=== PATIENT | male | born 1965 | race Hispanic/Latino ===

== ENCOUNTER 2020-09-01 14:29 | Inpatient (IN) | payer OTHER ==
[~2020-09-01] VITALS: Ht 167.6 cm; Wt 77.2 kg
[2020-09-01 14:58] LABS: BASOPHILS % (AUTO) 3.2 % (0.0-5.0); EOSINOPHILS % (AUTO) 3.8 % (0.0-8.0); LYMPHOCYTES % (AUTO) 22.2 % (21.0-51.0); MEAN CORPUSCULAR HEMOGLOBIN 31.5 pg (27.0-33.0); MEAN CORPUSCULAR HGB CONC 34.9 g/dL (32.0-36.0); MEAN CORPUSCULAR VOLUME 90.5 fL (79-99); MONOCYTES % (AUTO) 11.9 % (3.0-13.0); NEUTROPHILS % (AUTO) 58.7 % (40.0-77.0); PLATELET COUNT (AUTO) 111 K/uL (130-400); RED BLOOD CELL COUNT(AUTO) 4.09 MIL/uL (4.50-6.20); RED CELL DISTRIBUTION WIDTH 15.4 % (11.0-15.5); WHITE BLOOD COUNT (AUTO) 5.3 K/uL (4.8-10.8)
[2020-09-01] MEDS ORDERED: CHLORPROMAZINE HCL 25 MG/ML 1ML AMP ONE (15:07)
[2020-09-01] MEDS ORDERED: SODIUM CHLORIDE 0.9% 1000ML 1,000 ML IV ONE (15:08)
[2020-09-01 15:09] LABS: POTASSIUM 3.2 mmol/L (3.5-5.1)
[2020-09-01] MEDS ORDERED: POTASSIUM CHLORIDE 10% ELIXIR 20 MEQ/15 ML UDCUP ONE (15:26)
[2020-09-01 15:32] LABS: ALBUMIN 3.1 g/dL (3.5-5.0); BILIRUBIN,TOTAL 3.5 mg/dL (0.2-1.0); TOTAL PROTEIN, SERUM 8.2 g/dL (6.0-8.3)
[2020-09-01 16:39] LABS: BILIRUBIN,URINE Negative (NEGATIVE); COLOR,URINE Yellow (YELLOW); GLUCOSE, URINE (UA) Negative (NEGATIVE); KETONES,URINE Negative (NEGATIVE); LEUKOCYTE ESTERASE ,URINE Negative (NEGATIVE); NITRATE,URINE Negative (NEGATIVE); OCCULT BLOOD,URINE Negative (NEGATIVE); PH,URINE 6.5 (5.0-8.0); PROTEIN,URINE Negative (NEGATIVE); UROBILINOGEN,URINE 0.2 mg/dL (0.2-1.0)
[2020-09-01 16:40] LABS: INR 1.29 (0.85-1.15); PROTHROMBIN TIME 13.7 SEC (9.6-11.6)
[2020-09-01 16:41] LABS: PARTIAL THROMBOPLASTIN TIME 32.8 SEC (26.3-35.5)
[2020-09-01 16:41] LABS: APPEARANCE,URINE SLIGHTLY CLOUDY (CLEAR)
[2020-09-01 16:45] LABS: BACTERIA,URINE Moderate /HPF (None Seen); RBC,URINE 0-1 /HPF (0-1); WBC,URINE 0-1 /HPF (0-1)
[2020-09-01 16:46] LABS: SQUAMOUS EPITHELIAL CELL,UR Rare /HPF (0-2)
[2020-09-01 16:47] LABS: AMPHET/METH SCREEN,URINE NEGATIVE (NEGATIVE); BARBITURATE SCREEN, URINE NEGATIVE (NEGATIVE); BENZODIAZEPINES SCREEN,URINE NEGATIVE (NEGATIVE); CANNABINOID SCREEN,URINE NEGATIVE (NEGATIVE); COCAINE SCREEN,URINE NEGATIVE (NEGATIVE); OPIATE SCREEN,URINE NEGATIVE (NEGATIVE); PHENCYCLIDINE SCREEN,URINE NEGATIVE (NEGATIVE)
[2020-09-01] MEDS ORDERED: LORAZEPAM 2 MG/ML 1 ML VIAL ONE ×2 (18:27→21:13)
[2020-09-01] MEDS ORDERED: PHARMACY COMMUNICATION MISC PRN (20:15)
[2020-09-01] MEDS ORDERED: CHLORDIAZEPOXIDE HCL 25 MG CAP PO PRN ×2 (20:15)
[2020-09-01] MEDS ORDERED: LORAZEPAM 2 MG/ML 1 ML VIAL IVP PRN ×2 (20:15)
[2020-09-01] MEDS: LACTATED RINGERS 1000ML 1,000 ML IV SCH ×2 (20:15→22:15)
[2020-09-01] MEDS: CEFTRIAXONE SODIUM 1 GM IVP SCH (20:30)
[2020-09-01] MEDS ORDERED: MAG HYDROX/AL HYDROX/SIMETH ES 30 ML SUSP UDCUP PO PRN (20:45)
[2020-09-01] MEDS ORDERED: GUAIFENESIN-DM 200/20 MG 10 ML PO PRN (20:45)
[2020-09-01] MEDS ORDERED: DiphenhydrAMINE HCL 50 MG/ML VIAL IV PRN (20:45)
[2020-09-01] MEDS ORDERED: NITROGLYCERIN 0.4 MG SL TAB SL PRN (20:45)
[2020-09-01] MEDS ORDERED: LACTULOSE 20 GM/30 ML UDCUP PO PRN (20:45)
[2020-09-01] MEDS ORDERED: ONDANSETRON HCL 4 MG/2 ML VIAL IV PRN (20:45)
[2020-09-01] MEDS ORDERED: DIPHENHYDRAMINE HCL 25 MG CAPSULE PO PRN (20:45)
[2020-09-01] MEDS ORDERED: ACETAMINOPHEN 325 MG TAB PO PRN ×2 (20:45)
[2020-09-01] MEDS ORDERED: CEFTRIAXONE SODIUM 1 GM ONE (21:13)
[2020-09-01] MEDS ORDERED: LACTATED RINGERS 1000ML 3,000 ML IV ONE (21:13)
[2020-09-01 21:50] LABS: HEMATOCRIT 32.6 % (42-54)
[2020-09-01 22:05] LABS: CARBON DIOXIDE 23 mmol/L (21-32); CHLORIDE 101 mmol/L (101-111); GLOMERULAR FILTR. RATE CALC 82 mL/min (>60); GLUCOSE,RANDOM 118 mg/dL (70-105); POTASSIUM 3.9 mmol/L (3.5-5.1); SODIUM SERUM 136 mmol/L (136-145); UREA NITROGEN, BLOOD 5 mg/dL (7-18)
[2020-09-01 22:09] LABS: ALANINE AMINOTRANSFERASE 42 U/L (12-78); ALBUMIN 2.7 g/dL (3.5-5.0); ASPARTATE AMINOTRANSFERASE 165 U/L (10-37); BILIRUBIN,TOTAL 3.4 mg/dL (0.2-1.0); TOTAL PROTEIN, SERUM 7.3 g/dL (6.0-8.3)
[2020-09-01 22:10] LABS: ACETAMINOPHEN < 1 mcg/mL (10-29); CRP QUANTITATIVE 12.7 mg/L (0.00-9.0); SALICYLATE < 2.8 mg/dL (2.8-20.0)
[2020-09-01 23:47] LABS: HEMATOCRIT 32.6 % (42-54)
[2020-09-02] MEDS: LACTATED RINGERS 1000ML 1,000 ML IV SCH (00:15)
[2020-09-02 03:25] LABS: HEMATOCRIT 30.9 % (42-54)
[2020-09-02] MEDS ORDERED: METOPROLOL TARTRATE 25 MG TAB ONE (04:42)
[2020-09-02] MEDS ORDERED: THIAMINE HCL 100 MG/ML 2ML VIAL ONE (07:31)
[2020-09-02] MEDS ORDERED: FOLIC ACID 1 MG TABLET ONE (07:31)
[2020-09-02] MEDS ORDERED: MULTIVITAMIN TABLET ONE (07:31)
[2020-09-02 08:03] LABS: HEMATOCRIT 32.9 % (42-54)
[2020-09-02] MEDS: METOPROLOL TARTRATE 25 MG TAB PO SCH ×2 (09:00→21:43)
[2020-09-02] MEDS: FOLIC ACID 1 MG TABLET PO SCH (09:00)
[2020-09-02] MEDS: THIAMINE HCL 100 MG/ML 2ML VIAL IV SCH (09:00)
[2020-09-02] MEDS: MULTIVITAMIN TABLET PO SCH (09:00)
[2020-09-02 11:56] LABS: HEMATOCRIT 33.4 % (42-54)
[2020-09-02 13:01] VITALS: BP 137/83
[2020-09-02] MEDS ORDERED: LORAZEPAM 2 MG/ML 1 ML VIAL ONE (13:12)
[2020-09-02 20:02] VITALS: BP 131/78
[2020-09-02] MEDS ORDERED: CLON2TAB11 PO (21:33)
[2020-09-02] MEDS ORDERED: METO25TA6 PO (21:33)
[2020-09-02] MEDS ORDERED: LISI20TA24 PO (21:33)
[2020-09-02] MEDS: CEFTRIAXONE SODIUM 1 GM IVP SCH (21:43)
[2020-09-03] VITALS (7 sets, daily range): BP systolic 114–132; BP diastolic 74–86
[2020-09-03] MEDS ORDERED: CLONAZEPAM 1 MG TABLET PO ONE ×2 (00:30→23:00)
[2020-09-03 05:15] LABS: BASOPHILS % (AUTO) 1.6 % (0.0-5.0); EOSINOPHILS % (AUTO) 7.8 % (0.0-8.0); LYMPHOCYTES % (AUTO) 15.4 % (21.0-51.0); MEAN CORPUSCULAR HGB CONC 34.5 g/dL (32.0-36.0); MEAN CORPUSCULAR VOLUME 92.7 fL (79-99); MONOCYTES % (AUTO) 12.6 % (3.0-13.0); NEUTROPHILS % (AUTO) 62.1 % (40.0-77.0); PLATELET COUNT (AUTO) 77 K/uL (130-400); RED BLOOD CELL COUNT(AUTO) 3.56 MIL/uL (4.50-6.20); RED CELL DISTRIBUTION WIDTH 14.8 % (11.0-15.5); WHITE BLOOD COUNT (AUTO) 5.6 K/uL (4.8-10.8)
[2020-09-03 06:02] LABS: CREATININE 1.1 mg/dL (0.5-1.5); POTASSIUM 3.8 mmol/L (3.5-5.1)
[2020-09-03 07:14] LABS: HEPATITIS A ANTIBODY IGM Negative (Negative); HEPATITIS B CORE IGM Negative (Negative); HEPATITIS Bs ANTIGEN SCREEN P Negative (Negative)
[2020-09-03] MEDS: LISINOPRIL 20 MG TABLET PO SCH (09:00)
[2020-09-03] MEDS: FOLIC ACID 1 MG TABLET PO SCH (09:00)
[2020-09-03] MEDS: MULTIVITAMIN TABLET PO SCH (09:00)
[2020-09-03] MEDS: THIAMINE HCL 100 MG/ML 2ML VIAL IV SCH (09:00)
[2020-09-03] MEDS: METOPROLOL TARTRATE 25 MG TAB PO SCH (09:02)
[2020-09-03] MEDS: CEFTRIAXONE SODIUM 1 GM IVP SCH (20:48)
[2020-09-03] MEDS ORDERED: CLONAZEPAM 1 MG TABLET ONE (22:50)
[2020-09-04 03:07] VITALS: BP 128/74
[2020-09-04 05:50] LABS: BASOPHILS % (AUTO) 1.5 % (0.0-5.0); EOSINOPHILS % (AUTO) 4.1 % (0.0-8.0); HEMATOCRIT 34.1 % (42-54); LYMPHOCYTES % (AUTO) 13.8 % (21.0-51.0); MEAN CORPUSCULAR HEMOGLOBIN 32.3 pg (27.0-33.0); MEAN CORPUSCULAR HGB CONC 35.2 g/dL (32.0-36.0); MEAN CORPUSCULAR VOLUME 91.7 fL (79-99); MONOCYTES % (AUTO) 10.3 % (3.0-13.0); NEUTROPHILS % (AUTO) 69.6 % (40.0-77.0); PLATELET COUNT (AUTO) 81 K/uL (130-400); RED BLOOD CELL COUNT(AUTO) 3.72 MIL/uL (4.50-6.20); RED CELL DISTRIBUTION WIDTH 14.9 % (11.0-15.5); WHITE BLOOD COUNT (AUTO) 9.2 K/uL (4.8-10.8)
[2020-09-04 06:02] LABS: ALBUMIN 2.8 g/dL (3.5-5.0); BILIRUBIN,DIRECT 2.2 mg/dL (0.0-0.3); BILIRUBIN,TOTAL 4.1 mg/dL (0.2-1.0); CREATININE 1.1 mg/dL (0.5-1.5); POTASSIUM 3.5 mmol/L (3.5-5.1); TOTAL PROTEIN, SERUM 7.4 g/dL (6.0-8.3)
[2020-09-04 08:00] VITALS: BP 151/88
[2020-09-04] MEDS: METOPROLOL TARTRATE 25 MG TAB PO SCH (08:12)
[2020-09-04] MEDS: MULTIVITAMIN TABLET PO SCH (08:12)
[2020-09-04] MEDS: FOLIC ACID 1 MG TABLET PO SCH (08:12)
[2020-09-04] MEDS: LISINOPRIL 20 MG TABLET PO SCH (08:12)
[2020-09-04] MEDS: THIAMINE HCL 100 MG/ML 2ML VIAL IV SCH (08:13)
[2020-09-04] MEDS ORDERED: SULF1TAB42 PO (10:34)
[2020-09-04 11:00] VITALS: BP 129/74
== END 2020-09-04 13:45 | disposition home or self-care (01) | DRG 433 ==
LOC: EDH 14:29 → EDHIP 14:30 → 3BH 09-02 20:40
PROVIDERS: ADMIT Family Medicine; ATTEND Family Medicine
DX: K70.30 Alcoholic cirrhosis of liver without ascites (principal); M62.82 Rhabdomyolysis; F10.10 Alcohol abuse, uncomplicated; E86.0 Dehydration; I10 Essential (primary) hypertension
CPT/HCPCS: 36415; 74177; 76705; 80048; 80053; 80074; 80076; 80305; 81001; 82270; 82550; 83605; 83735; 84145; 84443; 84484; 85014; 85018; 85025; 85610; 85730; 86140; 86701; 87077; 87088; 87186; 87390; 93005; G0378; G0481; J0696; J2060; J3230; J3411; J7030; J7120

== ENCOUNTER 2022-01-28 23:44 | Inpatient (IN) | payer OTHER ==
[~2022-01-28] VITALS: Ht 167.6 cm; Wt 65.8 kg
[~2022-01-28 23:44] MED LIST: CLON2TAB11 PO; LISI20TA24 PO; METO25TA6 PO; SULF1TAB42 PO
[2022-01-29 00:40] LABS: BASOPHILS % (AUTO) 1.1 % (0.0-5.0); EOSINOPHILS % (AUTO) 8.3 % (0.0-8.0); HEMATOCRIT 27.3 % (42-54); LYMPHOCYTES % (AUTO) 7.7 % (21.0-51.0); MEAN CORPUSCULAR HEMOGLOBIN 37.3 pg (27.0-33.0); MEAN CORPUSCULAR HGB CONC 36.6 g/dL (32.0-36.0); MEAN CORPUSCULAR VOLUME 101.9 fL (79-99); MONOCYTES % (AUTO) 13.5 % (3.0-13.0); NEUTROPHILS % (AUTO) 68.2 % (40.0-77.0); PLATELET COUNT (AUTO) 194 K/uL (130-400); RED BLOOD CELL COUNT(AUTO) 2.68 MIL/uL (4.50-6.20); RED CELL DISTRIBUTION WIDTH 13.2 % (11.0-15.5); WHITE BLOOD COUNT (AUTO) 13.5 K/uL (4.8-10.8)
[2022-01-29 00:46] LABS: CARBON DIOXIDE 20 mmol/L (21-32); CHLORIDE 93 mmol/L (101-111); CREATININE 2.2 mg/dL (0.5-1.5); GLOMERULAR FILTR. RATE CALC 33 mL/min (>60); GLUCOSE,RANDOM 115 mg/dL (70-105); POTASSIUM 4.1 mmol/L (3.5-5.1); SODIUM SERUM 125 mmol/L (136-145); UREA NITROGEN, BLOOD 37 mg/dL (7-18)
[2022-01-29 00:49] LABS: INR 1.48 (0.85-1.15); PARTIAL THROMBOPLASTIN TIME 30.3 SEC (26.3-35.5)
[2022-01-29 00:50] LABS: ALANINE AMINOTRANSFERASE 37 U/L (12-78); ALBUMIN 1.6 g/dL (3.5-5.0); AMMONIA 28 umol/L (11-32); ASPARTATE AMINOTRANSFERASE 90 U/L (10-37); TOTAL PROTEIN, SERUM 7.1 g/dL (6.0-8.3)
[2022-01-29] MEDS ORDERED: ONDANSETRON 4MG INJ IV PRN (02:00)
[2022-01-29] MEDS ORDERED: ACETAMINOPHEN 325 MG TAB PO PRN ×2 (02:00)
[2022-01-29] MEDS ORDERED: MORPHINE 2 MG SYG IV PRN (02:00)
[2022-01-29 02:18] LABS: HEMOGLOBIN A1C 4.1 % (4.0-6.0)
[2022-01-29] MEDS ORDERED: ZOSYN 3.375GM+NS 50ML 50 ML ONE (02:19)
[2022-01-29] MEDS: ZOSYN 3.375GM+NS 50ML 50 ML IV SCH ×3 (02:35→21:17)
[2022-01-29] MEDS ORDERED: FUROSEMIDE 20 MG TABLET PO SCH (03:30)
[2022-01-29 04:00] VITALS: BP 132/79
[2022-01-29] MEDS ORDERED: [UNRECOGNIZED DRUG - CODE] PO (04:39)
[2022-01-29] MEDS ORDERED: DAFLON PO (04:39)
[2022-01-29] MEDS ORDERED: CLIN-141 PO (04:39)
[2022-01-29] MEDS ORDERED: [UNRECOGNIZED DRUG - OTHER] PO (04:39)
[2022-01-29 07:05] VITALS: BP 117/69
[2022-01-29] MEDS ORDERED: ENOXAPARIN SODIUM 40 MG/0.4 ML SYRINGE SQ SCH (09:00)
[2022-01-29] MEDS ORDERED: FAMOTIDINE 20MG VIAL IV SCH (09:00)
[2022-01-29] MEDS ORDERED: SPIRONOLACTONE 25 MG TAB PO SCH (09:00)
[2022-01-29 09:57] LABS: CARBON DIOXIDE 21 mmol/L (21-32); CHLORIDE 96 mmol/L (101-111); CREATININE 2.1 mg/dL (0.5-1.5); GLOMERULAR FILTR. RATE CALC 35 mL/min (>60); GLUCOSE,RANDOM 94 mg/dL (70-105); SODIUM SERUM 129 mmol/L (136-145); UREA NITROGEN, BLOOD 34 mg/dL (7-18)
[2022-01-29 10:02] LABS: ALANINE AMINOTRANSFERASE 39 U/L (12-78); ALBUMIN 1.6 g/dL (3.5-5.0); ASPARTATE AMINOTRANSFERASE 87 U/L (10-37); CREATINE KINASE, TOTAL 260 U/L (21-232)
[2022-01-29] MEDS: THIAMINE HCL 100 MG TABLET PO SCH (10:30)
[2022-01-29] MEDS: PANTOPRAZOLE 40 MG/VIAL IVP SCH ×2 (10:30→21:17)
[2022-01-29 11:05] VITALS: BP 118/71
[2022-01-29] MEDS: 0.9%NACL 1000ML 1,000 ML IV SCH (12:07)
[2022-01-29] MEDS: LINEZOLID 600 MG/ISO-OSM 300 ML IV SCH ×2 (12:08→21:17)
[2022-01-29] MEDS ORDERED: LIDOCAINE HCL MPF 1% 5ML VIAL ONE (14:47)
[2022-01-29 15:05] VITALS: BP 109/73
[2022-01-29] MEDS: HYDROMORPHONE 0.5 MG SYG (0.5MG/0.5ML) IVP PRN ×2 (16:14→22:14)
[2022-01-29 19:00] VITALS: BP 120/80
[2022-01-29 19:37] LABS: APPEARANCE,URINE Clear (CLEAR); BILIRUBIN,URINE Negative (NEGATIVE); COLOR,URINE Dark Yellow (YELLOW); GLUCOSE, URINE (UA) Negative (NEGATIVE); KETONES,URINE Negative (NEGATIVE); LEUKOCYTE ESTERASE ,URINE Trace (NEGATIVE); NITRATE,URINE Negative (NEGATIVE); OCCULT BLOOD,URINE Large (NEGATIVE); PROTEIN,URINE POS 2+ mg/dL (NEGATIVE)
[2022-01-29 19:40] LABS: CREATININE,URINE RANDOM 54 mg/dL (30-135); SODIUM,URINE RANDOM 58 mmol/l (40-220)
[2022-01-29 20:01] LABS: BACTERIA,URINE Few /HPF (None Seen)
[2022-01-29 20:02] LABS: RBC,URINE 26-50 /HPF (0-1); SQUAMOUS EPITHELIAL CELL,UR Rare /HPF (0-2); YEAST,URINE BUDDING Few /HPF (None Seen)
[2022-01-29 23:55] VITALS: BP 108/65
[2022-01-30 04:00] VITALS: BP 117/76
[2022-01-30] MEDS: ZOSYN 3.375GM+NS 50ML 50 ML IV SCH ×2 (04:20→12:23)
[2022-01-30] MEDS: 0.9%NACL 1000ML 1,000 ML IV SCH ×2 (04:21→09:09)
[2022-01-30 05:48] LABS: BASOPHILS % (AUTO) 1.7 % (0.0-5.0); EOSINOPHILS % (AUTO) 22.5 % (0.0-8.0); HEMATOCRIT 29.5 % (42-54); MEAN CORPUSCULAR HEMOGLOBIN 36.3 pg (27.0-33.0); MEAN CORPUSCULAR HGB CONC 34.2 g/dL (32.0-36.0); MEAN CORPUSCULAR VOLUME 106.1 fL (79-99); MONOCYTES % (AUTO) 9.4 % (3.0-13.0); NEUTROPHILS % (AUTO) 54.3 % (40.0-77.0); PLATELET COUNT (AUTO) 167 K/uL (130-400); RED BLOOD CELL COUNT(AUTO) 2.78 MIL/uL (4.50-6.20); RED CELL DISTRIBUTION WIDTH 13.3 % (11.0-15.5); WHITE BLOOD COUNT (AUTO) 10.4 K/uL (4.8-10.8)
[2022-01-30 06:07] LABS: ALANINE AMINOTRANSFERASE 35 U/L (12-78); ALBUMIN 1.5 g/dL (3.5-5.0); AMMONIA 32 umol/L (11-32); ASPARTATE AMINOTRANSFERASE 86 U/L (10-37); CARBON DIOXIDE 25 mmol/L (21-32); CHLORIDE 100 mmol/L (101-111); CREATININE 1.9 mg/dL (0.5-1.5); GLOMERULAR FILTR. RATE CALC 39 mL/min (>60); GLUCOSE,RANDOM 87 mg/dL (70-105); PHOSPHORUS 4.4 mg/dL (2.5-4.9); POTASSIUM 4.3 mmol/L (3.5-5.1); SODIUM SERUM 133 mmol/L (136-145); TOTAL PROTEIN, SERUM 6.8 g/dL (6.0-8.3); UREA NITROGEN, BLOOD 34 mg/dL (7-18)
[2022-01-30 06:10] LABS: % IRON SATURATION 65.2 % (30-44)
[2022-01-30 06:53] LABS: ERYTHROCYTE SEDIMENTATION RATE 105 MM/HR (0-20)
[2022-01-30 07:30] VITALS: BP 119/70
[2022-01-30] MEDS: PANTOPRAZOLE 40 MG/VIAL IVP SCH ×2 (09:10→20:16)
[2022-01-30] MEDS: THIAMINE HCL 100 MG TABLET PO SCH (09:10)
[2022-01-30] MEDS: LINEZOLID 600 MG/ISO-OSM 300 ML IV SCH ×2 (10:27→22:53)
[2022-01-30] MEDS: LACTULOSE 20 GM/30 ML UDCUP PO SCH ×3 (10:27→20:30)
[2022-01-30 11:00] VITALS: BP 114/73
[2022-01-30 17:00] VITALS: BP 116/76
[2022-01-30 19:27] VITALS: BP 123/76
[2022-01-30 23:29] VITALS: BP 121/66
[2022-01-31 04:03] VITALS: BP 113/73
[2022-01-31 05:08] LABS: BASOPHILS % (AUTO) 1.3 % (0.0-5.0); HEMATOCRIT 26.3 % (42-54); LYMPHOCYTES % (AUTO) 12.7 % (21.0-51.0); MEAN CORPUSCULAR HEMOGLOBIN 36.6 pg (27.0-33.0); MEAN CORPUSCULAR HGB CONC 35.4 g/dL (32.0-36.0); MEAN CORPUSCULAR VOLUME 103.5 fL (79-99); MONOCYTES % (AUTO) 10.4 % (3.0-13.0); NEUTROPHILS % (AUTO) 55.3 % (40.0-77.0); PLATELET COUNT (AUTO) 142 K/uL (130-400); RED BLOOD CELL COUNT(AUTO) 2.54 MIL/uL (4.50-6.20); RED CELL DISTRIBUTION WIDTH 13.2 % (11.0-15.5); WHITE BLOOD COUNT (AUTO) 8.3 K/uL (4.8-10.8)
[2022-01-31 05:36] LABS: ALBUMIN 1.3 g/dL (3.5-5.0); CREATININE 1.8 mg/dL (0.5-1.5); POTASSIUM 3.8 mmol/L (3.5-5.1); TOTAL PROTEIN, SERUM 6.1 g/dL (6.0-8.3)
[2022-01-31] MEDS: HYDROMORPHONE 0.5 MG SYG (0.5MG/0.5ML) IVP PRN (06:09)
[2022-01-31 08:00] VITALS: BP 115/74
[2022-01-31] MEDS: PANTOPRAZOLE 40 MG/VIAL IVP SCH (09:33)
[2022-01-31] MEDS: LACTULOSE 20 GM/30 ML UDCUP PO SCH (09:33)
[2022-01-31] MEDS: THIAMINE HCL 100 MG TABLET PO SCH (09:33)
[2022-01-31] MEDS ORDERED: CEFUROXIME AXETIL 250 MG TABLET PO SCH (10:30)
[2022-01-31 11:50] VITALS: BP 120/82
[2022-01-31] MEDS ORDERED: CEFU500T67 PO (13:27)
== END 2022-01-31 15:50 | disposition home or self-care (01) | DRG 871 ==
LOC: EDH 23:44 → EDHIP 23:45 → 3BH 01-29 03:50
PROVIDERS: ADMIT Hospitalist; ATTEND Hospitalist
PROC: 0H9LXZZ Drainage of Left Lower Leg Skin, External Approach (ICD-10-PCS; principal; 2022-01-29)
DX: A41.9 Sepsis, unspecified organism (principal); E43 Unspecified severe protein-calorie malnutrition; L03.116 Cellulitis of left lower limb; N17.9 Acute kidney failure, unspecified; E87.1 Hypo-osmolality and hyponatremia; R18.8 Other ascites; R65.20 Severe sepsis without septic shock; I10 Essential (primary) hypertension; D53.9 Nutritional anemia, unspecified; E88.09 Other disorders of plasma-protein metabolism, not elsewhere classified; Z20.822 Contact with and (suspected) exposure to COVID-19; Z68.23 Body mass index [BMI] 23.0-23.9, adult; Z80.3 Family history of malignant neoplasm of breast; Z83.3 Family history of diabetes mellitus; Z82.5 Family history of asthma and other chronic lower respiratory diseases; K74.60 Unspecified cirrhosis of liver; E78.5 Hyperlipidemia, unspecified
CPT/HCPCS: 36415; 73700; 76705; 76770; 76882; 80053; 81001; 82140; 82550; 82570; 82948; 83036; 83540; 83550; 83605; 84100; 84145; 84300; 84540; 85025; 85610; 85651; 85730; 86140; 87040; 87070; 87076; 87077; 87088; 87186; 87635; 87804; 93925; 93970; C9113; G0378; J1170; J2020; J2543; J3490

== ENCOUNTER 2022-02-13 03:24 | Emergency (ER) | payer OTHER ==
[~2022-02-13] VITALS: Ht 167.6 cm; Wt 68.0 kg
[~2022-02-13 03:24] MED LIST changes: +CEFU500T67 PO; -CLON2TAB11 PO; +DAFLON PO; -LISI20TA24 PO; -METO25TA6 PO; -SULF1TAB42 PO; +[UNRECOGNIZED DRUG - CODE] PO
[2022-02-13 04:00] LABS: BASOPHILS % (AUTO) 1.6 % (0.0-5.0); EOSINOPHILS % (AUTO) 12.2 % (0.0-8.0); HEMATOCRIT 29.1 % (42-54); LYMPHOCYTES % (AUTO) 17.1 % (21.0-51.0); MEAN CORPUSCULAR HEMOGLOBIN 36.8 pg (27.0-33.0); MEAN CORPUSCULAR HGB CONC 35.4 g/dL (32.0-36.0); MEAN CORPUSCULAR VOLUME 103.9 fL (79-99); MONOCYTES % (AUTO) 13.8 % (3.0-13.0); PLATELET COUNT (AUTO) 162 K/uL (130-400); RED CELL DISTRIBUTION WIDTH 14.8 % (11.0-15.5); WHITE BLOOD COUNT (AUTO) 8.6 K/uL (4.8-10.8)
[2022-02-13 04:07] LABS: POTASSIUM 4.8 mmol/L (3.5-5.1)
[2022-02-13 04:11] LABS: ALBUMIN 1.9 g/dL (3.5-5.0); TOTAL PROTEIN, SERUM 7.8 g/dL (6.0-8.3)
[2022-02-13] MEDS: ALBUMIN (HUMAN) 25% 100 ML IV PRN (04:20)
[2022-02-13] MEDS: FENTANYL CITRATE PF 50 MCG/1 ML 2ML VIAL IVP ONE (04:26)
[2022-02-13] MEDS: BACITRACIN 1 EACH PACKET TP ONE (12:59)
[2022-02-13 13:40] VITALS: BP 120/84
== END 2022-02-13 13:41 | disposition home or self-care (01) ==
LOC: EDH 03:24
DX: R18.8 Other ascites (principal); I10 Essential (primary) hypertension
CPT/HCPCS: 49082; 99285; 96365; 96375; 80053; 82140; 83690; 85025; 36415; P9046; J3010

== ENCOUNTER 2022-02-26 07:46 | Observation (INO) | payer OTHER ==
[~2022-02-26] VITALS: Ht 167.6 cm; Wt 68.7 kg
[2022-02-26 08:42] LABS: BASOPHILS % (AUTO) 1.9 % (0.0-5.0); EOSINOPHILS % (AUTO) 7.1 % (0.0-8.0); HEMATOCRIT 28.3 % (42-54); LYMPHOCYTES % (AUTO) 10.4 % (21.0-51.0); MEAN CORPUSCULAR HEMOGLOBIN 35.9 pg (27.0-33.0); MEAN CORPUSCULAR HGB CONC 34.6 g/dL (32.0-36.0); MEAN CORPUSCULAR VOLUME 103.7 fL (79-99); MONOCYTES % (AUTO) 12.2 % (3.0-13.0); NEUTROPHILS % (AUTO) 68.1 % (40.0-77.0); PLATELET COUNT (AUTO) 163 K/uL (130-400); RED BLOOD CELL COUNT(AUTO) 2.73 MIL/uL (4.50-6.20); RED CELL DISTRIBUTION WIDTH 14.6 % (11.0-15.5); WHITE BLOOD COUNT (AUTO) 6.9 K/uL (4.8-10.8)
[2022-02-26 08:54] LABS: INR 1.32 (0.85-1.15); PROTHROMBIN TIME 14.2 SEC (9.6-11.6)
[2022-02-26 08:55] LABS: CARBON DIOXIDE 20 mmol/L (21-32); CHLORIDE 102 mmol/L (101-111); CREATININE 1.9 mg/dL (0.5-1.5); GLOMERULAR FILTR. RATE CALC 39 mL/min (>60); GLUCOSE,RANDOM 111 mg/dL (70-105); PARTIAL THROMBOPLASTIN TIME 31.7 SEC (26.3-35.5); POTASSIUM 3.7 mmol/L (3.5-5.1); SODIUM SERUM 132 mmol/L (136-145); UREA NITROGEN, BLOOD 34 mg/dL (7-18)
[2022-02-26 08:59] LABS: ALANINE AMINOTRANSFERASE 43 U/L (12-78); ALCOHOL, BLOOD < 3 mg/dL (0-10); AMMONIA 45 umol/L (11-32); ASPARTATE AMINOTRANSFERASE 76 U/L (10-37); CREATINE KINASE, TOTAL 123 U/L (21-232); TOTAL PROTEIN, SERUM 7.6 g/dL (6.0-8.3)
[2022-02-26] MEDS ORDERED: HYDROCODONE/ACETAMINOPHEN 5/325 MG TAB PO ONE (09:30)
[2022-02-26 10:57] LABS: BILIRUBIN,URINE MODERATE (NEGATIVE); GLUCOSE, URINE (UA) NEGATIVE (NEGATIVE); KETONES,URINE NEGATIVE (NEGATIVE); LEUKOCYTE ESTERASE ,URINE NEGATIVE (NEGATIVE); NITRATE,URINE NEGATIVE (NEGATIVE); OCCULT BLOOD,URINE LARGE (NEGATIVE); PROTEIN,URINE 100 mg/dL (NEGATIVE); UROBILINOGEN,URINE 0.2 mg/dL (0.2-1.0)
[2022-02-26 11:03] LABS: APPEARANCE,URINE CLOUDY (CLEAR)
[2022-02-26 11:04] LABS: COLOR,URINE BROWN (YELLOW)
[2022-02-26 11:20] LABS: BACTERIA,URINE Few /HPF (None Seen); RBC,URINE 26-50 /HPF (0-1); SQUAMOUS EPITHELIAL CELL,UR Rare /HPF (0-2)
[2022-02-26 11:21] LABS: AMPHET/METH SCREEN,URINE NEGATIVE (NEGATIVE); BENZODIAZEPINES SCREEN,URINE NEGATIVE (NEGATIVE); CANNABINOID SCREEN,URINE NEGATIVE (NEGATIVE); COCAINE SCREEN,URINE NEGATIVE (NEGATIVE); PHENCYCLIDINE SCREEN,URINE NEGATIVE (NEGATIVE)
[2022-02-26] MEDS ORDERED: DiphenhydrAMINE HCL 50 MG/ML VIAL IV PRN (12:00)
[2022-02-26] MEDS ORDERED: MAG/ALUM/SIMETH 30 ML UDCUP PO PRN (12:00)
[2022-02-26] MEDS ORDERED: LACTULOSE 20 GM/30 ML UDCUP PO PRN (12:00)
[2022-02-26] MEDS ORDERED: ONDANSETRON 4MG INJ IV PRN (12:00)
[2022-02-26] MEDS ORDERED: FUROSEMIDE 20MG VIAL IV SCH (12:30)
[2022-02-26] MEDS: CEFTRIAXONE 1G VIAL IV SCH (12:34)
[2022-02-26] MEDS: SPIRONOLACTONE 25 MG TAB PO SCH ×2 (12:34→19:59)
[2022-02-26 13:52] VITALS: BP 122/80
[2022-02-26 16:00] VITALS: BP 115/76
[2022-02-26 20:00] VITALS: BP 132/86
[2022-02-26] MEDS ORDERED: MORPHINE 2 MG SYG IM ONE (23:30)
[2022-02-27] VITALS: BP 122/79
[2022-02-27 04:00] VITALS: BP 111/81
[2022-02-27 08:00] VITALS: BP 119/79
[2022-02-27 08:51] LABS: HEMATOCRIT 27.8 % (42-54); MEAN CORPUSCULAR HGB CONC 34.2 g/dL (32.0-36.0); MEAN CORPUSCULAR VOLUME 105.3 fL (79-99); PLATELET COUNT (AUTO) 146 K/uL (130-400); RED BLOOD CELL COUNT(AUTO) 2.64 MIL/uL (4.50-6.20); RED CELL DISTRIBUTION WIDTH 14.6 % (11.0-15.5); WHITE BLOOD COUNT (AUTO) 7.7 K/uL (4.8-10.8)
[2022-02-27 08:59] LABS: MAGNESIUM 1.9 mg/dL (1.80-2.40)
[2022-02-27] MEDS ORDERED: THIAMINE HCL 100 MG TABLET PO SCH (09:00)
[2022-02-27] MEDS ORDERED: CYANOCOBALAMIN (VITAMIN B-12) 1,000 MCG TABLET PO SCH (09:00)
[2022-02-27] MEDS ORDERED: FOLIC ACID 1 MG TABLET PO SCH (09:00)
[2022-02-27] MEDS ORDERED: SPIRONOLACTONE 25 MG TAB PO SCH (09:00)
[2022-02-27] MEDS ORDERED: FAMOTIDINE 20MG VIAL IV SCH (09:00)
[2022-02-27] MEDS ORDERED: FUROSEMIDE 20MG VIAL IV SCH (09:00)
[2022-02-27] MEDS ORDERED: ALBUMIN (HUMAN) 25% 200 ML IV SCH (11:00)
[2022-02-27] MEDS: SPIRONOLACTONE 25 MG TAB PO SCH (11:32)
[2022-02-27] MEDS: CEFTRIAXONE 1G VIAL IV SCH (11:51)
[2022-02-27 12:00] VITALS: BP 142/76
[2022-02-27] MEDS ORDERED: THIA100T78 PO (12:31)
[2022-02-27] MEDS ORDERED: LACT10SO9 PO (12:31)
[2022-02-27] MEDS ORDERED: SPIR50TA5 PO (12:31)
[2022-02-27] MEDS ORDERED: RIFA550T PO (12:31)
[2022-02-27 13:12] LABS: APPEARANCE BODY FLUID CLEAR (CLEAR); COLOR,BODY FLUID YELLOW (LT YELLOW); SPECIMENTYPE,BODY FLUID ASCITES; TOTAL VOLUME,BODY FLUID 8000 mL
[2022-02-27 13:13] LABS: BODY FLUID RBC 24 /cu. mm.; BODY FLUID WBC 116 /cu. mm.
[2022-02-27 13:44] LABS: BF LYMPHOCYTE 26 %; BF MESOTHELIAL 65 %; BF MONOCYTE 3 %
[2022-02-27 16:00] VITALS: BP 120/72
[2022-03-01 10:14] LABS: OPIATES SCREEN URINE Negative ng/mL (Cutoff=300)
== END 2022-02-27 17:15 | disposition home or self-care (01) ==
LOC: EDH 07:46 → OBSVTOIN 07:47 → EDHIP 07:47 → INTOOBSV 07:47 → 3DH 12:57
PROVIDERS: ADMIT Hospitalist; ATTEND Hospitalist
DX: K70.31 Alcoholic cirrhosis of liver with ascites (principal); E11.22 Type 2 diabetes mellitus with diabetic chronic kidney disease; N18.9 Chronic kidney disease, unspecified; D53.9 Nutritional anemia, unspecified; D63.1 Anemia in chronic kidney disease; E87.1 Hypo-osmolality and hyponatremia; I87.2 Venous insufficiency (chronic) (peripheral); Z87.891 Personal history of nicotine dependence; Z91.19 Patient's noncompliance with other medical treatment and regimen; Z79.899 Other long term (current) drug therapy
CPT/HCPCS: 96372; 96375 ×2; 99285; 82550; 83735 ×2; 84484; 80053; 80305; 82140; 85025; 85610; 85730; 81001; 36415 ×2; 71045; 73590; 93971; 49083; 93005; 96376; 96365; 96366; 80048; 85027; 89051; 87071; 87205; G0378 ×29; J0696 ×2; J1940; C1729; J3490; P9046

== ENCOUNTER 2022-03-11 17:56 | Inpatient (IN) | payer OTHER ==
[~2022-03-11] VITALS: Ht 167.6 cm; Wt 71.0 kg
[~2022-03-11 17:56] MED LIST changes: -CEFU500T67 PO; +LACT10SO9 PO; +RIFA550T PO; +SPIR50TA5 PO; +THIA100T78 PO
[2022-03-11 18:22] LABS: BASOPHILS % (AUTO) 1.3 % (0.0-5.0); EOSINOPHILS % (AUTO) 9.2 % (0.0-8.0); HEMATOCRIT 25.7 % (42-54); MEAN CORPUSCULAR HEMOGLOBIN 36.4 pg (27.0-33.0); MEAN CORPUSCULAR HGB CONC 35.8 g/dL (32.0-36.0); MEAN CORPUSCULAR VOLUME 101.6 fL (79-99); MONOCYTES % (AUTO) 11.8 % (3.0-13.0); NEUTROPHILS % (AUTO) 66.8 % (40.0-77.0); PLATELET COUNT (AUTO) 149 K/uL (130-400); RED BLOOD CELL COUNT(AUTO) 2.53 MIL/uL (4.50-6.20); RED CELL DISTRIBUTION WIDTH 14.4 % (11.0-15.5); WHITE BLOOD COUNT (AUTO) 8.8 K/uL (4.8-10.8)
[2022-03-11 18:38] LABS: CREATININE 2.1 mg/dL (0.5-1.5); INR 1.3 (0.85-1.15); POTASSIUM 3.8 mmol/L (3.5-5.1)
[2022-03-11 18:39] LABS: PARTIAL THROMBOPLASTIN TIME 33.6 SEC (26.3-35.5)
[2022-03-11 18:42] LABS: TOTAL PROTEIN, SERUM 7.4 g/dL (6.0-8.3)
[2022-03-11] MEDS ORDERED: DICY20TA3 PO (18:49)
[2022-03-11] MEDS ORDERED: CIPR-279 PO (18:49)
[2022-03-11 19:03] LABS: B-TYPE NATRIURETIC PEPTIDE 105 pg/mL (0-100)
[2022-03-11 22:22] LABS: APPEARANCE,URINE CLEAR (CLEAR); BILIRUBIN,URINE NEGATIVE (NEGATIVE); COLOR,URINE YELLOW (YELLOW); GLUCOSE, URINE (UA) NEGATIVE (NEGATIVE); KETONES,URINE NEGATIVE (NEGATIVE); LEUKOCYTE ESTERASE ,URINE NEGATIVE (NEGATIVE); NITRATE,URINE NEGATIVE (NEGATIVE); OCCULT BLOOD,URINE LARGE (NEGATIVE); PROTEIN,URINE 100 mg/dL (NEGATIVE); UROBILINOGEN,URINE 0.2 mg/dL (0.2-1.0)
[2022-03-11] MEDS ORDERED: ONDANSETRON 4MG INJ IV PRN (22:30)
[2022-03-11] MEDS ORDERED: ACETAMINOPHEN 325 MG TAB PO PRN (22:30)
[2022-03-11] MEDS ORDERED: LACTULOSE 20 GM/30 ML UDCUP PO ONE (22:30)
[2022-03-11] MEDS ORDERED: NITROGLYCERIN 0.4 MG SL TAB SL PRN (22:30)
[2022-03-11 22:34] LABS: % IRON SATURATION 93.1 % (30-44)
[2022-03-11 22:35] LABS: WBC,URINE 0-1 /HPF (0-1)
[2022-03-11 22:36] LABS: BACTERIA,URINE Few /HPF (None Seen); SQUAMOUS EPITHELIAL CELL,UR Few /HPF (0-2); YEAST,URINE BUDDING Rare /HPF (None Seen)
[2022-03-11 22:37] LABS: TRANSITIONAL EPI CELLS,URINE Few /HPF (None Seen)
[2022-03-11 22:38] LABS: MUCUS,URINE Rare LPF (None Seen)
[2022-03-11] MEDS: ZOSYN 3.375GM+NS 50ML 50 ML IV SCH (23:00)
[2022-03-11] MEDS: HYDROMORPHONE 0.5 MG SYG (0.5MG/0.5ML) IVP PRN (23:08)
[2022-03-11] MEDS: LACTULOSE 20 GM/30 ML UDCUP PO SCH (23:09)
[2022-03-12] MEDS: HYDROMORPHONE 0.5 MG SYG (0.5MG/0.5ML) IVP PRN ×2 (04:26→08:38)
[2022-03-12] MEDS: ZOSYN 3.375GM+NS 50ML 50 ML IV SCH ×3 (04:51→21:19)
[2022-03-12] MEDS ORDERED: ZOSYN 3.375GM+NS 50ML 50 ML IV SCH (05:00)
[2022-03-12] MEDS: LACTULOSE 20 GM/30 ML UDCUP PO SCH ×4 (05:02→23:24)
[2022-03-12 08:22] LABS: BASOPHILS % (AUTO) 1.4 % (0.0-5.0); EOSINOPHILS % (AUTO) 17.3 % (0.0-8.0); HEMATOCRIT 24.7 % (42-54); LYMPHOCYTES % (AUTO) 11.8 % (21.0-51.0); MEAN CORPUSCULAR HEMOGLOBIN 35.7 pg (27.0-33.0); MEAN CORPUSCULAR HGB CONC 34.4 g/dL (32.0-36.0); MEAN CORPUSCULAR VOLUME 103.8 fL (79-99); MONOCYTES % (AUTO) 12.6 % (3.0-13.0); NEUTROPHILS % (AUTO) 56.1 % (40.0-77.0); PLATELET COUNT (AUTO) 145 K/uL (130-400); RED BLOOD CELL COUNT(AUTO) 2.38 MIL/uL (4.50-6.20); RED CELL DISTRIBUTION WIDTH 14.4 % (11.0-15.5); WHITE BLOOD COUNT (AUTO) 7.6 K/uL (4.8-10.8)
[2022-03-12] MEDS: FAMOTIDINE 20MG VIAL IV SCH ×2 (08:38→21:19)
[2022-03-12 10:38] LABS: POTASSIUM 3.8 mmol/L (3.5-5.1); TOTAL PROTEIN, SERUM 6.6 g/dL (6.0-8.3)
[2022-03-12 10:56] LABS: ALBUMIN 1.8 g/dL (3.5-5.0); CREATININE 1.9 mg/dL (0.5-1.5); MAGNESIUM 2.1 mg/dL (1.80-2.40)
[2022-03-12 13:42] VITALS: BP 130/69
[2022-03-12] MEDS: SPIRONOLACTONE 25 MG TAB PO SCH (21:19)
[2022-03-12 22:10] VITALS: BP 137/85
[2022-03-13] MEDS: HYDROMORPHONE 0.5 MG SYG (0.5MG/0.5ML) IVP PRN (00:08)
[2022-03-13 04:48] LABS: ALBUMIN 1.7 g/dL (3.5-5.0); CREATININE 2.1 mg/dL (0.5-1.5); POTASSIUM 4.5 mmol/L (3.5-5.1); TOTAL PROTEIN, SERUM 6.5 g/dL (6.0-8.3)
[2022-03-13 04:59] LABS: BASOPHILS % (AUTO) 1.7 % (0.0-5.0); EOSINOPHILS % (AUTO) 13.7 % (0.0-8.0); HEMATOCRIT 24.2 % (42-54); MEAN CORPUSCULAR HEMOGLOBIN 36.1 pg (27.0-33.0); MEAN CORPUSCULAR HGB CONC 34.3 g/dL (32.0-36.0); MEAN CORPUSCULAR VOLUME 105.2 fL (79-99); MONOCYTES % (AUTO) 12.4 % (3.0-13.0); NEUTROPHILS % (AUTO) 60.5 % (40.0-77.0); PLATELET COUNT (AUTO) 158 K/uL (130-400); RED CELL DISTRIBUTION WIDTH 14.3 % (11.0-15.5); WHITE BLOOD COUNT (AUTO) 8.8 K/uL (4.8-10.8)
[2022-03-13 05:26] VITALS: BP 111/68
[2022-03-13] MEDS: ZOSYN 3.375GM+NS 50ML 50 ML IV SCH ×2 (05:30→12:50)
[2022-03-13] MEDS: LACTULOSE 20 GM/30 ML UDCUP PO SCH ×2 (05:34→12:00)
[2022-03-13 08:14] VITALS: BP 116/73
[2022-03-13] MEDS ORDERED: ALBUMIN (HUMAN) 25% 200 ML IV SCH (09:45)
[2022-03-13 10:00] VITALS: BP 137/71
[2022-03-13] MEDS: SPIRONOLACTONE 25 MG TAB PO SCH (10:04)
[2022-03-13] MEDS: FAMOTIDINE 20MG VIAL IV SCH (10:04)
[2022-03-13 12:03] LABS: BF BASOPHIL 1 %; BF LYMPHOCYTE 26 %; BF MESOTHELIAL 48 %; BF MONOCYTE 15 %
[2022-03-13 12:12] LABS: APPEARANCE BODY FLUID CLEAR (CLEAR); BODY FLUID WBC 27 /cu. mm.; COLOR,BODY FLUID YELLOW (LT YELLOW); SPECIMENTYPE,BODY FLUID ASCITES; TOTAL VOLUME,BODY FLUID 8000 mL
[2022-03-13 12:13] LABS: BODY FLUID RBC 55 /cu. mm.
[2022-03-13] MEDS ORDERED: LIDOCAINE HCL 1% 20 ML VIAL ONE (13:08)
[2022-03-14] MEDS ORDERED: THIAMINE HCL 100 MG TABLET PO SCH (09:00)
[2022-03-14] MEDS ORDERED: FOLIC ACID 1 MG TABLET PO SCH (09:00)
== END 2022-03-13 13:00 | disposition home or self-care (01) | DRG 433 ==
LOC: EDH 17:56 → EDHIP 17:57 → 4AH 03-12 22:10
PROVIDERS: ADMIT Internal Medicine; ATTEND Internal Medicine
PROC: 0W9G3ZZ Drainage of Peritoneal Cavity, Percutaneous Approach (ICD-10-PCS; principal; 2022-03-11)
DX: K70.31 Alcoholic cirrhosis of liver with ascites (principal); N17.9 Acute kidney failure, unspecified; D53.9 Nutritional anemia, unspecified; Z20.822 Contact with and (suspected) exposure to COVID-19; N18.30 Chronic kidney disease, stage 3 unspecified; E11.22 Type 2 diabetes mellitus with diabetic chronic kidney disease; E78.00 Pure hypercholesterolemia, unspecified; E88.09 Other disorders of plasma-protein metabolism, not elsewhere classified; F10.20 Alcohol dependence, uncomplicated; I12.9 Hypertensive chronic kidney disease with stage 1 through stage 4 chronic kidney disease, or unspecified chronic kidney disease; Z91.19 Patient's noncompliance with other medical treatment and regimen; Z80.3 Family history of malignant neoplasm of breast
CPT/HCPCS: 36415; 49083; 74176; 80053; 81001; 82140; 82150; 82550; 82607; 82728; 83540; 83550; 83690; 83735; 83880; 84484; 85025; 85610; 85730; 87040; 87071; 87205; 87635; 89051; 93005; C1729; G0378; J1170; J2405; J2543; J3490; P9046

== ENCOUNTER 2022-03-21 10:03 | Emergency (ER) | payer OTHER ==
[~2022-03-21] VITALS: Ht 167.6 cm; Wt 68.0 kg
[~2022-03-21 10:03] MED LIST changes: +CIPR-279 PO; -DAFLON PO; +DICY20TA3 PO; -RIFA550T PO; -THIA100T78 PO; -[UNRECOGNIZED DRUG - CODE] PO
[2022-03-21 10:25] LABS: BASOPHILS % (AUTO) 2.1 % (0.0-5.0); EOSINOPHILS % (AUTO) 14.5 % (0.0-8.0); HEMATOCRIT 28.2 % (42-54); MEAN CORPUSCULAR HEMOGLOBIN 35.4 pg (27.0-33.0); MEAN CORPUSCULAR VOLUME 104.1 fL (79-99); MONOCYTES % (AUTO) 15.3 % (3.0-13.0); NEUTROPHILS % (AUTO) 52.5 % (40.0-77.0); PLATELET COUNT (AUTO) 137 K/uL (130-400); RED BLOOD CELL COUNT(AUTO) 2.71 MIL/uL (4.50-6.20); RED CELL DISTRIBUTION WIDTH 14.1 % (11.0-15.5); WHITE BLOOD COUNT (AUTO) 6.6 K/uL (4.8-10.8)
[2022-03-21 10:41] LABS: INR 1.26 (0.85-1.15); PROTHROMBIN TIME 13.6 SEC (9.6-11.6)
[2022-03-21 10:43] LABS: PARTIAL THROMBOPLASTIN TIME 33.9 SEC (26.3-35.5)
[2022-03-21 10:45] LABS: ALBUMIN 2.1 g/dL (3.5-5.0); CREATININE 2.1 mg/dL (0.5-1.5); POTASSIUM 3.9 mmol/L (3.5-5.1); TOTAL PROTEIN, SERUM 7.4 g/dL (6.0-8.3)
[2022-03-21 12:26] VITALS: BP 112/73
[2022-03-21] MEDS ORDERED: ALBUMIN (HUMAN) 25% 200 ML IV ONE (12:43)
[2022-03-21] MEDS ORDERED: ALBUMIN (HUMAN) 25% 100 ML IV PRN ×2 (13:00)
[2022-03-22] MEDS ORDERED: CEPH500B PO (18:47)
== END 2022-03-21 13:13 | disposition home or self-care (01) ==
LOC: EDH 10:03
DX: R18.8 Other ascites (principal); I10 Essential (primary) hypertension; Z79.899 Other long term (current) drug therapy; Z98.890 Other specified postprocedural states
CPT/HCPCS: 49083; 99285; 96365; 76705; 71045; 84484; 80053; 85025; 85610; 85730; 36415; 93005; P9046; 49082

== ENCOUNTER 2022-03-22 17:59 | Emergency (ER) | payer OTHER ==
[~2022-03-22] VITALS: Ht 167.6 cm; Wt 68.0 kg
[2022-03-22 18:03] VITALS: BP 132/81
[2022-03-22] MEDS ORDERED: CEPH500B PO (18:47)
[2022-03-22] MEDS ORDERED: CEPHALEXIN 250 MG CAPSULE ONE (18:55)
[2022-03-22] MEDS ORDERED: CEPHALEXIN 250 MG/5 ML BOTTLE PO SCH (19:00)
[2022-03-22] MEDS ORDERED: CEPHALEXIN 500 MG CAPSULE PO ONE (19:00)
== END 2022-03-22 19:07 | disposition home or self-care (01) ==
LOC: EDH 17:59
DX: T81.89XA Other complications of procedures, not elsewhere classified, initial encounter (principal); I10 Essential (primary) hypertension; Z79.899 Other long term (current) drug therapy; Z98.890 Other specified postprocedural states

== ENCOUNTER 2022-04-04 12:28 | Emergency (ER) | payer OTHER ==
[~2022-04-04] VITALS: Ht 167.6 cm; Wt 68.0 kg
[~2022-04-04 12:28] MED LIST changes: +CEPH500B PO
[2022-04-04 13:01] LABS: BASOPHILS % (AUTO) 2.6 % (0.0-5.0); EOSINOPHILS % (AUTO) 13.4 % (0.0-8.0); HEMATOCRIT 27.5 % (42-54); LYMPHOCYTES % (AUTO) 16.2 % (21.0-51.0); MEAN CORPUSCULAR HEMOGLOBIN 35.2 pg (27.0-33.0); MEAN CORPUSCULAR HGB CONC 34.2 g/dL (32.0-36.0); MONOCYTES % (AUTO) 13.2 % (3.0-13.0); NEUTROPHILS % (AUTO) 54.1 % (40.0-77.0); PLATELET COUNT (AUTO) 146 K/uL (130-400); RED BLOOD CELL COUNT(AUTO) 2.67 MIL/uL (4.50-6.20); RED CELL DISTRIBUTION WIDTH 14.3 % (11.0-15.5); WHITE BLOOD COUNT (AUTO) 5.8 K/uL (4.8-10.8)
[2022-04-04] MEDS ORDERED: LIDOCAINE HCL 1% 10 ML VIAL ONE (13:05)
[2022-04-04] MEDS ORDERED: ALBUMIN (HUMAN) 25% 200 ML IV ONE (13:06)
[2022-04-04 13:13] LABS: INR 1.31 (0.85-1.15); PROTHROMBIN TIME 14.1 SEC (9.6-11.6)
[2022-04-04 13:15] LABS: PARTIAL THROMBOPLASTIN TIME 33.6 SEC (26.3-35.5)
[2022-04-04 13:19] LABS: CREATININE 1.7 mg/dL (0.5-1.5); POTASSIUM 3.2 mmol/L (3.5-5.1)
[2022-04-04 16:21] VITALS: BP 98/59
[2022-04-04 16:46] LABS: APPEARANCE BODY FLUID CLOUDY (CLEAR); BODY FLUID WBC 56 /cu. mm.; COLOR,BODY FLUID YELLOW (LT YELLOW); SPECIMENTYPE,BODY FLUID ASCITES; TOTAL VOLUME,BODY FLUID 12300 mL
[2022-04-04 16:47] LABS: BODY FLUID RBC 36 /cu. mm.
[2022-04-04 17:11] LABS: BF LYMPHOCYTE 8 %; BF MESOTHELIAL 1 %; BF OTHER CELLS 4
== END 2022-04-04 16:30 | disposition home or self-care (01) ==
LOC: EDH 12:28
DX: R14.0 Abdominal distension (gaseous) (principal); K74.60 Unspecified cirrhosis of liver; Z79.899 Other long term (current) drug therapy; Z98.890 Other specified postprocedural states
CPT/HCPCS: 49083; 99285; 96365; 80053; 85025; 89051; 85610; 85730; 87071; 87205; 36415; P9046; J3490; C1729

== ENCOUNTER 2022-04-13 17:42 | Observation (INO) | payer OTHER ==
[~2022-04-13] VITALS: Ht 167.6 cm; Wt 71.6 kg
[2022-04-13 18:13] LABS: BASOPHILS % (AUTO) 1.7 % (0.0-5.0); EOSINOPHILS % (AUTO) 15.2 % (0.0-8.0); HEMATOCRIT 26.8 % (42-54); LYMPHOCYTES % (AUTO) 10.9 % (21.0-51.0); MEAN CORPUSCULAR HEMOGLOBIN 34.8 pg (27.0-33.0); MEAN CORPUSCULAR HGB CONC 34.7 g/dL (32.0-36.0); MEAN CORPUSCULAR VOLUME 100.4 fL (79-99); MONOCYTES % (AUTO) 15.1 % (3.0-13.0); NEUTROPHILS % (AUTO) 56.4 % (40.0-77.0); PLATELET COUNT (AUTO) 152 K/uL (130-400); RED BLOOD CELL COUNT(AUTO) 2.67 MIL/uL (4.50-6.20); RED CELL DISTRIBUTION WIDTH 14.4 % (11.0-15.5); WHITE BLOOD COUNT (AUTO) 7.6 K/uL (4.8-10.8)
[2022-04-13 18:24] LABS: INR 1.32 (0.85-1.15); PROTHROMBIN TIME 14.2 SEC (9.6-11.6)
[2022-04-13 18:25] LABS: PARTIAL THROMBOPLASTIN TIME 31.9 SEC (26.3-35.5)
[2022-04-13 18:34] LABS: CREATININE 1.9 mg/dL (0.5-1.5); POTASSIUM 3.5 mmol/L (3.5-5.1)
[2022-04-13 18:39] LABS: ALBUMIN 2.5 g/dL (3.5-5.0); TOTAL PROTEIN, SERUM 7.2 g/dL (6.0-8.3)
[2022-04-13] MEDS ORDERED: ONDANSETRON 4MG INJ IV PRN (23:00)
[2022-04-13] MEDS ORDERED: LACTULOSE 20 GM/30 ML UDCUP PO PRN (23:00)
[2022-04-13] MEDS ORDERED: MORPHINE 2 MG SYG ONE (23:42)
[2022-04-14] MEDS ORDERED: MORPHINE 2 MG SYG IVP ONE
[2022-04-14 01:45] VITALS: BP 140/92
[2022-04-14] MEDS ORDERED: MORPHINE 2 MG SYG IVP PRN (03:30)
[2022-04-14 04:00] VITALS: BP 131/90
[2022-04-14 08:00] VITALS: BP 118/84
[2022-04-14] MEDS ORDERED: LACTULOSE 20 GM/30 ML UDCUP PO SCH (09:00)
[2022-04-14] MEDS ORDERED: PANTOPRAZOLE 40 MG TAB DR PO SCH (09:00)
[2022-04-14] MEDS ORDERED: ALBUMIN (HUMAN) 25% 200 ML IV ONE (09:57)
[2022-04-14] MEDS ORDERED: MAGNESIUM 2GM PREMIX 50ML 50 ML IV PRN (10:00)
[2022-04-14] MEDS ORDERED: KCL 20 MEQ ERTAB PO PRN (10:00)
[2022-04-14] MEDS ORDERED: LIDOCAINE HCL-MPF 1% 2ML VIAL IV PRN (10:00)
[2022-04-14] MEDS ORDERED: POTASSIUM CHLORIDE 10% ELIXIR 20 MEQ/15 ML UDCUP PO PRN (10:00)
[2022-04-14] MEDS ORDERED: POTASSIUM CHLORIDE 10MEQ/100ML 100 ML IV PRN (10:00)
[2022-04-14] MEDS ORDERED: LIDOCAINE HCL-MPF 2% 10ML AMP IJ ONE (16:28)
[2022-04-15] MEDS ORDERED: SODIUM CHLORIDE 1,000 MG TAB PO SCH (09:00)
== END 2022-04-14 16:13 | disposition home or self-care (01) ==
LOC: EDH 17:42 → INTOOBSV 17:43 → EDHIP 17:43 → 3CH 04-14 01:17
PROVIDERS: ADMIT Hospitalist; ATTEND Hospitalist
DX: R18.8 Other ascites (principal); E72.20 Disorder of urea cycle metabolism, unspecified; I12.9 Hypertensive chronic kidney disease with stage 1 through stage 4 chronic kidney disease, or unspecified chronic kidney disease; N18.30 Chronic kidney disease, stage 3 unspecified; E87.1 Hypo-osmolality and hyponatremia; R91.8 Other nonspecific abnormal finding of lung field; R06.01 Orthopnea; E11.22 Type 2 diabetes mellitus with diabetic chronic kidney disease; E78.5 Hyperlipidemia, unspecified; E86.9 Volume depletion, unspecified; K72.10 Chronic hepatic failure without coma; Z76.82 Awaiting organ transplant status; Z79.899 Other long term (current) drug therapy; Z98.890 Other specified postprocedural states
CPT/HCPCS: 96374; 99285; 80053; 82140 ×2; 85025; 85610; 85730; 36415 ×2; 71045; 74176; 96375; 49083; G0378 ×4; J3490; P9046; C1729

== ENCOUNTER 2022-04-24 09:08 | Emergency (ER) | payer OTHER ==
[~2022-04-24] VITALS: Ht 167.6 cm; Wt 70.8 kg
[2022-04-24 09:42] LABS: HEMATOCRIT 29.7 % (42-54); MEAN CORPUSCULAR HEMOGLOBIN 35.7 pg (27.0-33.0); MEAN CORPUSCULAR HGB CONC 34.3 g/dL (32.0-36.0); MEAN CORPUSCULAR VOLUME 103.8 fL (79-99); PLATELET COUNT (AUTO) 138 K/uL (130-400); RED BLOOD CELL COUNT(AUTO) 2.86 MIL/uL (4.50-6.20); RED CELL DISTRIBUTION WIDTH 14.2 % (11.0-15.5); WHITE BLOOD COUNT (AUTO) 7.4 K/uL (4.8-10.8)
[2022-04-24 09:44] LABS: CREATININE 1.6 mg/dL (0.5-1.5); POTASSIUM 3.8 mmol/L (3.5-5.1)
[2022-04-24 09:48] LABS: INR 1.36 (0.85-1.15); PROTHROMBIN TIME 14.6 SEC (9.6-11.6)
[2022-04-24 09:49] LABS: ALBUMIN 2.6 g/dL (3.5-5.0); PARTIAL THROMBOPLASTIN TIME 30.8 SEC (26.3-35.5); TOTAL PROTEIN, SERUM 7.6 g/dL (6.0-8.3)
[2022-04-24 10:06] LABS: BASOPHILS % (MANUAL) 3 % (0-2); EOSINOPHILS % (MANUAL) 24 % (1-6); LYMPHOCYTES % (MANUAL) 20 % (22-44); MAN.DIFF COMMENT-IMPRESSION MANUAL DIFFERENTIAL; MONOCYTES % (MANUAL) 10 % (2-9); PLATELET MORPHOLOGY COMMENT ADEQUATE; SEGMENTED NEUTROPHILS % 43 % (40-70)
[2022-04-24] MEDS ORDERED: ALBUMIN (HUMAN) 25% 200 ML IV SCH (12:00)
[2022-04-24 13:51] VITALS: BP 109/70
[2022-04-24 18:35] LABS: BF LYMPHOCYTE 70 %; BF MESOTHELIAL 25 %
[2022-04-24 18:36] LABS: APPEARANCE BODY FLUID CLEAR (CLEAR); COLOR,BODY FLUID YELLOW (LT YELLOW); SPECIMENTYPE,BODY FLUID ASCITES
[2022-04-24 18:38] LABS: TOTAL VOLUME,BODY FLUID 9000 mL
[2022-04-24 18:39] LABS: BODY FLUID RBC 20 /cu. mm.; BODY FLUID WBC 82 /cu. mm.
[2022-05-25] MEDS ORDERED: DICY20TA2 PO (15:20)
[2022-05-25] MEDS ORDERED: LACT10SO9 PO (15:20)
== END 2022-04-24 13:52 | disposition home or self-care (01) ==
LOC: EDH 09:08
DX: R18.8 Other ascites (principal); K74.60 Unspecified cirrhosis of liver
CPT/HCPCS: 49083; 99285; 96365; 80053; 85025; 89051; 85610; 85730; 87071; 87205; 36415; P9046; C1729

== ENCOUNTER 2022-05-09 10:52 | Emergency (ER) | payer SELFPAY ==
[~2022-05-09] VITALS: Ht 167.6 cm; Wt 68.0 kg
[2022-05-09 11:17] LABS: BASOPHILS % (AUTO) 2.5 % (0.0-5.0); EOSINOPHILS % (AUTO) 17.3 % (0.0-8.0); HEMATOCRIT 27.8 % (42-54); LYMPHOCYTES % (AUTO) 14.2 % (21.0-51.0); MEAN CORPUSCULAR HEMOGLOBIN 35.3 pg (27.0-33.0); MEAN CORPUSCULAR HGB CONC 34.9 g/dL (32.0-36.0); MEAN CORPUSCULAR VOLUME 101.1 fL (79-99); MONOCYTES % (AUTO) 15.1 % (3.0-13.0); NEUTROPHILS % (AUTO) 50.5 % (40.0-77.0); PLATELET COUNT (AUTO) 132 K/uL (130-400); RED BLOOD CELL COUNT(AUTO) 2.75 MIL/uL (4.50-6.20); RED CELL DISTRIBUTION WIDTH 13.7 % (11.0-15.5); WHITE BLOOD COUNT (AUTO) 4.9 K/uL (4.8-10.8)
[2022-05-09 11:25] LABS: CREATININE 1.6 mg/dL (0.5-1.5); POTASSIUM 3.6 mmol/L (3.5-5.1)
[2022-05-09 11:30] LABS: ALBUMIN 2.5 g/dL (3.5-5.0); TOTAL PROTEIN, SERUM 7.1 g/dL (6.0-8.3)
[2022-05-09 11:54] LABS: INR 1.29 (0.85-1.15); PROTHROMBIN TIME 13.9 SEC (9.6-11.6)
[2022-05-09 11:56] LABS: PARTIAL THROMBOPLASTIN TIME 32.6 SEC (26.3-35.5)
[2022-05-09] MEDS ORDERED: ALBUMIN (HUMAN) 25% 200 ML IV ONE (12:31)
[2022-05-09 14:48] VITALS: BP 99/63
== END 2022-05-09 15:19 | disposition home or self-care (01) ==
LOC: EDH 10:52
DX: R18.8 Other ascites (principal); K74.60 Unspecified cirrhosis of liver; Z79.899 Other long term (current) drug therapy; Z98.890 Other specified postprocedural states
CPT/HCPCS: 49083; 99285; 96365; 80053; 85025; 85610; 85730; 36415; P9046; C1729

== ENCOUNTER 2022-06-06 07:23 | Emergency (ER) | payer OTHER ==
[~2022-06-06] VITALS: Ht 167.6 cm; Wt 68.0 kg
[~2022-06-06 07:23] MED LIST changes: +DICY20TA2 PO
[2022-06-06 07:43] LABS: BASOPHILS % (AUTO) 1.9 % (0.0-5.0); EOSINOPHILS % (AUTO) 23.4 % (0.0-8.0); HEMATOCRIT 29.3 % (42-54); MEAN CORPUSCULAR HEMOGLOBIN 34.3 pg (27.0-33.0); MEAN CORPUSCULAR HGB CONC 33.8 g/dL (32.0-36.0); MEAN CORPUSCULAR VOLUME 101.4 fL (79-99); MONOCYTES % (AUTO) 12.8 % (3.0-13.0); NEUTROPHILS % (AUTO) 47.6 % (40.0-77.0); PLATELET COUNT (AUTO) 118 K/uL (130-400); RED BLOOD CELL COUNT(AUTO) 2.89 MIL/uL (4.50-6.20); RED CELL DISTRIBUTION WIDTH 14.6 % (11.0-15.5); WHITE BLOOD COUNT (AUTO) 7.2 K/uL (4.8-10.8)
[2022-06-06 08:01] LABS: CREATININE 1.5 mg/dL (0.5-1.5); INR 1.41 (0.85-1.15); POTASSIUM 3.8 mmol/L (3.5-5.1); PROTHROMBIN TIME 15.1 SEC (9.6-11.6)
[2022-06-06 08:06] LABS: ALBUMIN 2.4 g/dL (3.5-5.0); TOTAL PROTEIN, SERUM 7.4 g/dL (6.0-8.3)
[2022-06-06] MEDS ORDERED: LIDOCAINE HCL 1% 20 ML VIAL ONE (09:10)
[2022-06-06] MEDS ORDERED: ALBUMIN (HUMAN) 25% 200 ML IV ONE (09:11)
[2022-06-06] MEDS ORDERED: CIPR-279 PO (11:09)
[2022-06-06 11:36] VITALS: BP 105/69
== END 2022-06-06 11:37 | disposition home or self-care (01) ==
LOC: EDH 07:23
DX: R14.0 Abdominal distension (gaseous) (principal); K74.60 Unspecified cirrhosis of liver; Z98.890 Other specified postprocedural states; Z79.899 Other long term (current) drug therapy
CPT/HCPCS: 49083; 99285; 96365; 80053; 85025; 85610; 36415; P9046; C1729

== ENCOUNTER 2022-06-20 08:41 | Emergency (ER) | payer OTHER ==
[~2022-06-20] VITALS: Ht 167.6 cm; Wt 68.0 kg
[2022-06-20 09:21] LABS: BASOPHILS % (AUTO) 2.4 % (0.0-5.0); EOSINOPHILS % (AUTO) 24.2 % (0.0-8.0); LYMPHOCYTES % (AUTO) 15.3 % (21.0-51.0); MEAN CORPUSCULAR HEMOGLOBIN 34.8 pg (27.0-33.0); MEAN CORPUSCULAR HGB CONC 34.8 g/dL (32.0-36.0); MONOCYTES % (AUTO) 13.1 % (3.0-13.0); NEUTROPHILS % (AUTO) 44.8 % (40.0-77.0); PLATELET COUNT (AUTO) 132 K/uL (130-400); RED CELL DISTRIBUTION WIDTH 14.8 % (11.0-15.5); WHITE BLOOD COUNT (AUTO) 5.7 K/uL (4.8-10.8)
[2022-06-20 09:33] LABS: CREATININE 1.4 mg/dL (0.5-1.5); POTASSIUM 4.1 mmol/L (3.5-5.1)
[2022-06-20 09:38] LABS: ALBUMIN 2.3 g/dL (3.5-5.0); TOTAL PROTEIN, SERUM 6.9 g/dL (6.0-8.3)
[2022-06-20 09:39] LABS: INR 1.42 (0.85-1.15); PROTHROMBIN TIME 15.2 SEC (9.6-11.6)
[2022-06-20 09:40] LABS: PARTIAL THROMBOPLASTIN TIME 37.5 SEC (26.3-35.5)
[2022-06-20] MEDS ORDERED: ATOR40TA71 PO (11:02)
[2022-06-20] MEDS ORDERED: METF-444 PO (11:02)
[2022-06-20] MEDS ORDERED: ASPI-1026 PO (11:02)
[2022-06-20] MEDS ORDERED: [UNRECOGNIZED DRUG - CODE] PO (11:02)
[2022-06-20] MEDS ORDERED: LISI10TA24 PO (11:02)
[2022-06-20] MEDS ORDERED: LIDOCAINE HCL 1% 20 ML VIAL ONE (11:31)
[2022-06-20] MEDS ORDERED: SODIUM BICARB 50MEQ 50ML VIAL 50 ML ONE (11:32)
[2022-06-20] MEDS ORDERED: ALBUMIN (HUMAN) 25% 200 ML IV ONE (11:32)
[2022-06-20 13:20] VITALS: BP 98/62
[2022-07-03] MEDS ORDERED: CIPR-279 PO (13:15)
== END 2022-06-20 13:54 | disposition home or self-care (01) ==
LOC: EDH 08:41
DX: K74.60 Unspecified cirrhosis of liver (principal); R18.8 Other ascites; Z79.82 Long term (current) use of aspirin; Z79.84 Long term (current) use of oral hypoglycemic drugs; Z79.899 Other long term (current) drug therapy; Z98.890 Other specified postprocedural states
CPT/HCPCS: 49083; 99285; 96365; 96375; 80053; 85025; 85610; 85730; 36415; P9046; J3490; C1729

== ENCOUNTER 2022-07-17 09:06 | Inpatient (IN) | payer OTHER ==
[~2022-07-17] VITALS: Ht 167.6 cm; Wt 50.7 kg
[~2022-07-17 09:06] MED LIST changes: +ASPI-1026 PO; +ATOR40TA71 PO; -CEPH500B PO; -DICY20TA2 PO; -DICY20TA3 PO; -LACT10SO9 PO; +LISI10TA24 PO; +METF-444 PO; -SPIR50TA5 PO; +[UNRECOGNIZED DRUG - CODE] PO
[2022-07-17 10:07] LABS: BASOPHILS % (AUTO) 0.6 % (0.0-5.0); EOSINOPHILS % (AUTO) 9.1 % (0.0-8.0); HEMATOCRIT 28.9 % (42-54); LYMPHOCYTES % (AUTO) 9.9 % (21.0-51.0); MEAN CORPUSCULAR HEMOGLOBIN 34.9 pg (27.0-33.0); MEAN CORPUSCULAR HGB CONC 35.3 g/dL (32.0-36.0); MONOCYTES % (AUTO) 14.1 % (3.0-13.0); NEUTROPHILS % (AUTO) 65.8 % (40.0-77.0); PLATELET COUNT (AUTO) 142 K/uL (130-400); RED BLOOD CELL COUNT(AUTO) 2.92 MIL/uL (4.50-6.20); RED CELL DISTRIBUTION WIDTH 14.4 % (11.0-15.5); WHITE BLOOD COUNT (AUTO) 6.6 K/uL (4.8-10.8)
[2022-07-17 10:17] LABS: CREATININE 2.4 mg/dL (0.5-1.5); POTASSIUM 4.3 mmol/L (3.5-5.1)
[2022-07-17 10:18] LABS: INR 1.47 (0.85-1.15); PROTHROMBIN TIME 15.7 SEC (9.6-11.6)
[2022-07-17 10:20] LABS: PARTIAL THROMBOPLASTIN TIME 35.6 SEC (26.3-35.5)
[2022-07-17 10:21] LABS: ALBUMIN 2.4 g/dL (3.5-5.0); TOTAL PROTEIN, SERUM 7.3 g/dL (6.0-8.3)
[2022-07-17] MEDS ORDERED: LACTULOSE 20 GM/30 ML UDCUP PO ONE (12:30)
[2022-07-17] MEDS ORDERED: DEXTROSE 50%-WATER 50 ML DISP.SYRIN IV PRN (13:30)
[2022-07-17] MEDS ORDERED: ONDANSETRON 4MG INJ IV PRN (13:30)
[2022-07-17] MEDS ORDERED: MAGNESIUM 2GM PREMIX 50ML 50 ML IV PRN (13:30)
[2022-07-17] MEDS ORDERED: DIPHENHYDRAMINE HCL 25 MG CAPSULE PO PRN (13:30)
[2022-07-17] MEDS ORDERED: MAG/ALUM/SIMETH 30 ML UDCUP PO PRN (13:30)
[2022-07-17] MEDS ORDERED: NITROGLYCERIN 0.4 MG SL TAB SL PRN (13:30)
[2022-07-17] MEDS ORDERED: LIDOCAINE HCL-MPF 1% 2ML VIAL IV PRN (13:30)
[2022-07-17] MEDS ORDERED: GUAIFENESIN-DM 200/20 MG 10 ML PO PRN (13:30)
[2022-07-17] MEDS ORDERED: DiphenhydrAMINE HCL 50 MG/ML VIAL IV PRN (13:30)
[2022-07-17] MEDS ORDERED: GLUCAGON 1MG KIT 1 MG ML IM PRN (13:30)
[2022-07-17] MEDS ORDERED: POTASSIUM CHLORIDE 10% ELIXIR 20 MEQ/15 ML UDCUP PO PRN (13:30)
[2022-07-17] MEDS ORDERED: POTASSIUM CHLORIDE 20MEQ/100ML 100 ML IV PRN (13:30)
[2022-07-17] MEDS ORDERED: PHARMACY COMMUNICATION MISC SCH (14:00)
[2022-07-17] MEDS: CEFTRIAXONE 1G VIAL IV SCH (14:56)
[2022-07-17] MEDS: MIDODRINE HCL 5 MG TABLET PO SCH ×2 (14:57→20:32)
[2022-07-17] MEDS: HEPARIN 5,000 UNIT VIAL SQ SCH ×2 (14:57→20:33)
[2022-07-17] MEDS: OCTREOTIDE ACETATE 100 MCG/ML AMP SQ SCH ×2 (14:57→21:00)
[2022-07-17] MEDS: ALBUMIN (HUMAN) 25% 250 ML IV SCH (15:00)
[2022-07-17] MEDS ORDERED: LACT10SO5 PO (15:40)
[2022-07-17] MEDS ORDERED: DICY20TA3 PO (15:40)
[2022-07-17 16:00] VITALS: BP 115/83
[2022-07-17 20:27] VITALS: BP 123/90
[2022-07-17] MEDS: LACTULOSE 20 GM/30 ML UDCUP PO SCH (20:31)
[2022-07-17] MEDS: FAMOTIDINE 20MG TAB PO SCH (20:32)
[2022-07-17] MEDS ORDERED: FAMOTIDINE 20MG VIAL IV PRN (21:00)
[2022-07-17 23:33] VITALS: BP 118/82
[2022-07-18] MEDS ORDERED: RIFA550T PO
[2022-07-18 04:33] VITALS: BP 111/75
[2022-07-18 05:37] LABS: BASOPHILS % (AUTO) 0.9 % (0.0-5.0); EOSINOPHILS % (AUTO) 20.1 % (0.0-8.0); HEMATOCRIT 23.5 % (42-54); LYMPHOCYTES % (AUTO) 12.3 % (21.0-51.0); MEAN CORPUSCULAR HEMOGLOBIN 35.6 pg (27.0-33.0); MEAN CORPUSCULAR HGB CONC 35.7 g/dL (32.0-36.0); MEAN CORPUSCULAR VOLUME 99.6 fL (79-99); MONOCYTES % (AUTO) 15.8 % (3.0-13.0); NEUTROPHILS % (AUTO) 50.5 % (40.0-77.0); PLATELET COUNT (AUTO) 108 K/uL (130-400); RED BLOOD CELL COUNT(AUTO) 2.36 MIL/uL (4.50-6.20); RED CELL DISTRIBUTION WIDTH 14.4 % (11.0-15.5); WHITE BLOOD COUNT (AUTO) 5.5 K/uL (4.8-10.8)
[2022-07-18 06:04] LABS: ALBUMIN 2.2 g/dL (3.5-5.0); MAGNESIUM 2.2 mg/dL (1.80-2.40); PHOSPHORUS 3.4 mg/dL (2.5-4.9); POTASSIUM 3.9 mmol/L (3.5-5.1); TOTAL PROTEIN, SERUM 6.1 g/dL (6.0-8.3)
[2022-07-18 08:00] VITALS: BP 114/76
[2022-07-18] MEDS: LACTULOSE 20 GM/30 ML UDCUP PO SCH ×2 (08:33→21:17)
[2022-07-18] MEDS: MIDODRINE HCL 5 MG TABLET PO SCH ×3 (08:33→21:18)
[2022-07-18] MEDS: OCTREOTIDE ACETATE 100 MCG/ML AMP SQ SCH ×3 (08:33→21:18)
[2022-07-18] MEDS: HEPARIN 5,000 UNIT VIAL SQ SCH ×3 (09:00→21:00)
[2022-07-18 11:41] VITALS: BP 101/62
[2022-07-18] MEDS: CEFTRIAXONE 1G VIAL IV SCH (12:57)
[2022-07-18] MEDS: ALBUMIN (HUMAN) 25% 250 ML IV SCH (12:57)
[2022-07-18 15:47] VITALS: BP 101/66
[2022-07-18 19:54] VITALS: BP 118/83
[2022-07-18] MEDS: FAMOTIDINE 20MG TAB PO SCH (21:17)
[2022-07-18 23:27] VITALS: BP 103/71
[2022-07-19 04:18] VITALS: BP 114/72
[2022-07-19 05:50] LABS: BASOPHILS % (AUTO) 1.9 % (0.0-5.0); EOSINOPHILS % (AUTO) 23.9 % (0.0-8.0); HEMATOCRIT 24.4 % (42-54); LYMPHOCYTES % (AUTO) 13.2 % (21.0-51.0); MEAN CORPUSCULAR HEMOGLOBIN 35.1 pg (27.0-33.0); MEAN CORPUSCULAR HGB CONC 34.8 g/dL (32.0-36.0); MEAN CORPUSCULAR VOLUME 100.8 fL (79-99); MONOCYTES % (AUTO) 16.4 % (3.0-13.0); NEUTROPHILS % (AUTO) 44.4 % (40.0-77.0); PLATELET COUNT (AUTO) 104 K/uL (130-400); RED BLOOD CELL COUNT(AUTO) 2.42 MIL/uL (4.50-6.20); RED CELL DISTRIBUTION WIDTH 14.2 % (11.0-15.5); WHITE BLOOD COUNT (AUTO) 4.8 K/uL (4.8-10.8)
[2022-07-19 06:05] LABS: ALBUMIN 2.8 g/dL (3.5-5.0); CREATININE 1.7 mg/dL (0.5-1.5); POTASSIUM 3.3 mmol/L (3.5-5.1); TOTAL PROTEIN, SERUM 5.8 g/dL (6.0-8.3)
[2022-07-19] MEDS: KCL 20 MEQ ERTAB PO PRN ×3 (06:46→19:04)
[2022-07-19 08:00] VITALS: BP 127/84
[2022-07-19] MEDS: HEPARIN 5,000 UNIT VIAL SQ SCH ×3 (09:00→21:00)
[2022-07-19] MEDS: LACTULOSE 20 GM/30 ML UDCUP PO SCH ×4 (09:51→22:06)
[2022-07-19] MEDS: MIDODRINE HCL 5 MG TABLET PO SCH ×3 (09:51→22:07)
[2022-07-19] MEDS: OCTREOTIDE ACETATE 100 MCG/ML AMP SQ SCH ×3 (09:52→22:07)
[2022-07-19 12:00] VITALS: BP 122/88
[2022-07-19] MEDS: CEFTRIAXONE 1G VIAL IV SCH (12:52)
[2022-07-19 15:59] VITALS: BP 115/75
[2022-07-19 20:31] VITALS: BP 125/86
[2022-07-19] MEDS: FAMOTIDINE 20MG TAB PO SCH (22:07)
[2022-07-20 00:13] VITALS: BP 121/51
[2022-07-20 03:56] VITALS: BP 130/90
[2022-07-20 08:00] VITALS: BP 132/85
[2022-07-20] MEDS: MIDODRINE HCL 5 MG TABLET PO SCH ×3 (09:00→21:00)
[2022-07-20] MEDS: HEPARIN 5,000 UNIT VIAL SQ SCH ×3 (09:00→21:00)
[2022-07-20] MEDS: OCTREOTIDE ACETATE 100 MCG/ML AMP SQ SCH ×3 (09:00→21:00)
[2022-07-20] MEDS: LACTULOSE 20 GM/30 ML UDCUP PO SCH ×4 (09:20→23:58)
[2022-07-20] MEDS: LACTULOSE 20 GM/30 ML UDCUP PR SCH (11:06)
[2022-07-20 12:00] VITALS: BP_SYST 115; BP_SYST 133; BP_DIAS 76; BP_DIAS 78
[2022-07-20] MEDS: CEFTRIAXONE 1G VIAL IV SCH (13:18)
[2022-07-20 18:59] LABS: HEMATOCRIT 26.8 % (42-54); MEAN CORPUSCULAR HEMOGLOBIN 35.5 pg (27.0-33.0); MEAN CORPUSCULAR VOLUME 104.7 fL (79-99); RED BLOOD CELL COUNT(AUTO) 2.56 MIL/uL (4.50-6.20); RED CELL DISTRIBUTION WIDTH 14.3 % (11.0-15.5); WHITE BLOOD COUNT (AUTO) 5.4 K/uL (4.8-10.8)
[2022-07-20 19:07] LABS: INR 1.6 (0.85-1.15)
[2022-07-20 19:09] LABS: CREATININE 1.7 mg/dL (0.5-1.5); PARTIAL THROMBOPLASTIN TIME 47.6 SEC (26.3-35.5); POTASSIUM 3.9 mmol/L (3.5-5.1)
[2022-07-20 20:00] VITALS: BP 117/71
[2022-07-20] MEDS: FAMOTIDINE 20MG TAB PO SCH (21:00)
[2022-07-21] VITALS (7 sets, daily range): BP systolic 98–124; BP diastolic 64–80
[2022-07-21 05:18] LABS: HEMATOCRIT 24.9 % (42-54); MEAN CORPUSCULAR HEMOGLOBIN 35.7 pg (27.0-33.0); MEAN CORPUSCULAR HGB CONC 34.5 g/dL (32.0-36.0); MEAN CORPUSCULAR VOLUME 103.3 fL (79-99); RED BLOOD CELL COUNT(AUTO) 2.41 MIL/uL (4.50-6.20); RED CELL DISTRIBUTION WIDTH 14.2 % (11.0-15.5); WHITE BLOOD COUNT (AUTO) 7.3 K/uL (4.8-10.8)
[2022-07-21 05:29] LABS: INR 1.67 (0.85-1.15); PROTHROMBIN TIME 17.7 SEC (9.6-11.6)
[2022-07-21 05:31] LABS: PARTIAL THROMBOPLASTIN TIME 49.3 SEC (26.3-35.5)
[2022-07-21 05:32] LABS: ALBUMIN 2.8 g/dL (3.5-5.0); CREATININE 1.6 mg/dL (0.5-1.5); POTASSIUM 3.5 mmol/L (3.5-5.1); TOTAL PROTEIN, SERUM 6.5 g/dL (6.0-8.3)
[2022-07-21] MEDS: LACTULOSE 20 GM/30 ML UDCUP PO SCH ×4 (09:08→22:01)
[2022-07-21] MEDS: MIDODRINE HCL 5 MG TABLET PO SCH ×3 (09:08→22:00)
[2022-07-21] MEDS: OCTREOTIDE ACETATE 100 MCG/ML AMP SQ SCH ×3 (09:09→22:01)
[2022-07-21] MEDS: HEPARIN 5,000 UNIT VIAL SQ SCH ×3 (09:16→21:00)
[2022-07-21] MEDS: LACTULOSE 20 GM/30 ML UDCUP PR SCH (11:10)
[2022-07-21] MEDS ORDERED: ALBUMIN (HUMAN) 25% 300 ML IV SCH (14:00)
[2022-07-21] MEDS: CEFTRIAXONE 1G VIAL IV SCH (14:41)
[2022-07-21 16:28] LABS: APPEARANCE BODY FLUID CLEAR (CLEAR); COLOR,BODY FLUID YELLOW (LT YELLOW); SPECIMENTYPE,BODY FLUID ASCITES; TOTAL VOLUME,BODY FLUID 12000 mL
[2022-07-21 16:29] LABS: BODY FLUID RBC 170 /cu. mm.; BODY FLUID WBC 44 /cu. mm.
[2022-07-21 16:42] LABS: BF LYMPHOCYTE 5 %; BF MESOTHELIAL 3 %; BF OTHER CELLS 3
[2022-07-21 17:15] LABS: ALBUMIN,BODY FLUID 0.5 g/dL
[2022-07-21] MEDS: FAMOTIDINE 20MG TAB PO SCH (22:00)
[2022-07-22 04:00] VITALS: BP 111/78
[2022-07-22 05:23] LABS: HEMATOCRIT 25.9 % (42-54); MEAN CORPUSCULAR HEMOGLOBIN 35.1 pg (27.0-33.0); MEAN CORPUSCULAR HGB CONC 33.2 g/dL (32.0-36.0); MEAN CORPUSCULAR VOLUME 105.7 fL (79-99); PLATELET COUNT (AUTO) 97 K/uL (130-400); RED BLOOD CELL COUNT(AUTO) 2.45 MIL/uL (4.50-6.20); RED CELL DISTRIBUTION WIDTH 14.4 % (11.0-15.5); WHITE BLOOD COUNT (AUTO) 6.4 K/uL (4.8-10.8)
[2022-07-22 05:37] LABS: CREATININE 1.7 mg/dL (0.5-1.5); POTASSIUM 3.3 mmol/L (3.5-5.1)
[2022-07-22 08:01] VITALS: BP 107/60
[2022-07-22] MEDS ORDERED: LACT10SO9 PO (08:17)
[2022-07-22] MEDS ORDERED: LACTULOSE 20 GM/30 ML UDCUP PO ONE (08:30)
[2022-07-22] MEDS: MIDODRINE HCL 5 MG TABLET PO SCH ×3 (08:35→20:31)
[2022-07-22] MEDS: LACTULOSE 20 GM/30 ML UDCUP PO SCH ×4 (08:35→20:31)
[2022-07-22] MEDS: OCTREOTIDE ACETATE 100 MCG/ML AMP SQ SCH ×3 (08:35→20:31)
[2022-07-22] MEDS: HEPARIN 5,000 UNIT VIAL SQ SCH ×3 (08:36→20:32)
[2022-07-22] MEDS: LACTULOSE 20 GM/30 ML UDCUP PR SCH (08:36)
[2022-07-22] MEDS: KCL 20 MEQ ERTAB PO PRN ×3 (09:02→13:29)
[2022-07-22 11:43] VITALS: BP 112/74
[2022-07-22] MEDS: CEFTRIAXONE 1G VIAL IV SCH (13:26)
[2022-07-22 16:22] VITALS: BP 118/73
[2022-07-22 20:25] VITALS: BP 113/82
[2022-07-22] MEDS: FAMOTIDINE 20MG TAB PO SCH (20:31)
[2022-07-22 23:00] VITALS: BP 111/76
[2022-07-23 03:06] VITALS: BP 121/69
[2022-07-23] MEDS: KCL 20 MEQ ERTAB PO PRN ×2 (06:47→09:28)
[2022-07-23 08:00] VITALS: BP 104/67
[2022-07-23 09:26] LABS: HEMATOCRIT 26.6 % (42-54); MEAN CORPUSCULAR VOLUME 103.1 fL (79-99); RED BLOOD CELL COUNT(AUTO) 2.58 MIL/uL (4.50-6.20); RED CELL DISTRIBUTION WIDTH 14.5 % (11.0-15.5); WHITE BLOOD COUNT (AUTO) 10.1 K/uL (4.8-10.8)
[2022-07-23] MEDS: LACTULOSE 20 GM/30 ML UDCUP PO SCH ×4 (09:28→20:06)
[2022-07-23] MEDS: OCTREOTIDE ACETATE 100 MCG/ML AMP SQ SCH ×3 (09:29→20:06)
[2022-07-23] MEDS: MIDODRINE HCL 5 MG TABLET PO SCH ×3 (09:29→20:06)
[2022-07-23] MEDS: HEPARIN 5,000 UNIT VIAL SQ SCH ×3 (09:31→20:07)
[2022-07-23 09:55] LABS: POTASSIUM 3.8 mmol/L (3.5-5.1)
[2022-07-23] MEDS ORDERED: LACTULOSE 20 GM/30 ML UDCUP PO ONE (11:00)
[2022-07-23 12:00] VITALS: BP 106/52
[2022-07-23] MEDS: CEFTRIAXONE 1G VIAL IV SCH (13:47)
[2022-07-23 16:00] VITALS: BP 117/74
[2022-07-23] MEDS: FAMOTIDINE 20MG TAB PO SCH (20:06)
[2022-07-23 20:44] VITALS: BP 123/86
[2022-07-24 00:01] VITALS: BP 108/68
[2022-07-24 04:23] VITALS: BP 101/63
[2022-07-24 06:05] LABS: HEMATOCRIT 27.2 % (42-54); MEAN CORPUSCULAR HEMOGLOBIN 35.4 pg (27.0-33.0); MEAN CORPUSCULAR HGB CONC 33.8 g/dL (32.0-36.0); MEAN CORPUSCULAR VOLUME 104.6 fL (79-99); RED BLOOD CELL COUNT(AUTO) 2.6 MIL/uL (4.50-6.20); RED CELL DISTRIBUTION WIDTH 14.9 % (11.0-15.5); WHITE BLOOD COUNT (AUTO) 11.1 K/uL (4.8-10.8)
[2022-07-24 06:19] LABS: CREATININE 2.2 mg/dL (0.5-1.5); POTASSIUM 3.7 mmol/L (3.5-5.1); TOTAL PROTEIN, SERUM 6.2 g/dL (6.0-8.3)
[2022-07-24] MEDS: KCL 20 MEQ ERTAB PO PRN (06:26)
[2022-07-24 07:30] VITALS: BP 121/74
[2022-07-24] MEDS ORDERED: BISACODYL 10 MG SUPP.RECT RC ONE (07:30)
[2022-07-24] MEDS: LACTULOSE 20 GM/30 ML UDCUP PR SCH ×4 (09:00→21:03)
[2022-07-24] MEDS: OCTREOTIDE ACETATE 100 MCG/ML AMP SQ SCH ×3 (09:00→21:01)
[2022-07-24] MEDS: MIDODRINE HCL 5 MG TABLET PO SCH ×3 (09:00→21:03)
[2022-07-24] MEDS: HEPARIN 5,000 UNIT VIAL SQ SCH ×3 (09:14→21:02)
[2022-07-24 11:30] VITALS: BP 175/74
[2022-07-24] MEDS: CEFTRIAXONE 1G VIAL IV SCH (13:40)
[2022-07-24 15:30] VITALS: BP 108/65
[2022-07-24 20:00] VITALS: BP 118/77
[2022-07-24] MEDS: FAMOTIDINE 20MG TAB PO SCH ×2 (21:00→21:03)
[2022-07-25 00:01] VITALS: BP 115/79
[2022-07-25 04:37] VITALS: BP 118/69
[2022-07-25 05:31] LABS: HEMATOCRIT 26.5 % (42-54); MEAN CORPUSCULAR HEMOGLOBIN 36.2 pg (27.0-33.0); MEAN CORPUSCULAR HGB CONC 33.6 g/dL (32.0-36.0); MEAN CORPUSCULAR VOLUME 107.7 fL (79-99); RED BLOOD CELL COUNT(AUTO) 2.46 MIL/uL (4.50-6.20); RED CELL DISTRIBUTION WIDTH 15.1 % (11.0-15.5); WHITE BLOOD COUNT (AUTO) 7.7 K/uL (4.8-10.8)
[2022-07-25 05:50] LABS: ALBUMIN 2.7 g/dL (3.5-5.0); CREATININE 2.2 mg/dL (0.5-1.5); POTASSIUM 3.5 mmol/L (3.5-5.1); TOTAL PROTEIN, SERUM 6.2 g/dL (6.0-8.3)
[2022-07-25 07:30] VITALS: BP 109/75
[2022-07-25] MEDS: LACTULOSE 20 GM/30 ML UDCUP PR SCH ×4 (10:23→20:51)
[2022-07-25] MEDS: MIDODRINE HCL 5 MG TABLET PO SCH ×3 (10:23→21:00)
[2022-07-25] MEDS: OCTREOTIDE ACETATE 100 MCG/ML AMP SQ SCH ×3 (10:25→21:00)
[2022-07-25] MEDS: HEPARIN 5,000 UNIT VIAL SQ SCH ×3 (10:32→19:09)
[2022-07-25 11:30] VITALS: BP 106/60
[2022-07-25] MEDS: CEFTRIAXONE 1G VIAL IV SCH (13:55)
[2022-07-25 15:30] VITALS: BP 127/80
[2022-07-25 20:00] VITALS: BP 131/69
[2022-07-25] MEDS: FAMOTIDINE 20MG TAB PO SCH (20:51)
[2022-07-26] VITALS (16 sets, daily range): BP systolic 98–131; BP diastolic 60–79
[2022-07-26 05:01] LABS: HEMATOCRIT 26.4 % (42-54); MEAN CORPUSCULAR HEMOGLOBIN 35.6 pg (27.0-33.0); MEAN CORPUSCULAR HGB CONC 34.1 g/dL (32.0-36.0); MEAN CORPUSCULAR VOLUME 104.3 fL (79-99); RED BLOOD CELL COUNT(AUTO) 2.53 MIL/uL (4.50-6.20); RED CELL DISTRIBUTION WIDTH 15.5 % (11.0-15.5); WHITE BLOOD COUNT (AUTO) 8.6 K/uL (4.8-10.8)
[2022-07-26 05:15] LABS: ALBUMIN 2.8 g/dL (3.5-5.0); CREATININE 2.7 mg/dL (0.5-1.5); POTASSIUM 3.9 mmol/L (3.5-5.1); TOTAL PROTEIN, SERUM 6.4 g/dL (6.0-8.3)
[2022-07-26] MEDS ORDERED: ALBUMIN (HUMAN) 25% 200 ML IV SCH (09:30)
[2022-07-26] MEDS: MIDODRINE HCL 5 MG TABLET PO SCH ×3 (09:58→21:00)
[2022-07-26] MEDS: LACTULOSE 20 GM/30 ML UDCUP PR SCH ×4 (09:58→21:00)
[2022-07-26] MEDS: OCTREOTIDE ACETATE 100 MCG/ML AMP SQ SCH ×3 (09:58→21:00)
[2022-07-26] MEDS: HEPARIN 5,000 UNIT VIAL SQ SCH ×3 (10:00→21:00)
[2022-07-26] MEDS: CEFTRIAXONE 1G VIAL IV SCH (13:26)
[2022-07-26] MEDS ORDERED: LORAZEPAM 2 MG/ML 1 ML VIAL IVP PRN (14:00)
[2022-07-26] MEDS ORDERED: LIDOCAINE HCL 1% 20 ML VIAL ONE (15:30)
[2022-07-26] MEDS: FAMOTIDINE 20MG TAB PO SCH (21:00)
[2022-07-27 00:01] VITALS: BP 107/71
[2022-07-27 05:09] VITALS: BP 119/70
[2022-07-27] MEDS ORDERED: GLYCOPYRROLATE 1 MG/5 ML SYRINGE GT SCH (07:00)
[2022-07-27 08:00] VITALS: BP 109/70
[2022-07-27 11:30] VITALS: BP 106/64
[2022-07-28 07:30] VITALS: BP 108/58
[2022-07-28 20:14] VITALS: BP 94/55
[2022-07-29 07:30] VITALS: BP 101/48
[2022-07-29] MEDS: MORPHINE 2 MG SYG IVP PRN (12:34)
[2022-07-29 20:00] VITALS: BP 95/57
[2022-07-30] MEDS: MORPHINE 2 MG SYG IVP PRN ×4 (04:59→21:41)
[2022-07-30 07:30] VITALS: BP 93/63
[2022-07-30 20:00] VITALS: BP 84/50
[2022-07-31] VITALS: BP 83/60
[2022-07-31 03:00] VITALS: BP 96/60
[2022-07-31 03:51] VITALS: BP 97/53
[2022-07-31 08:00] VITALS: BP 118/53
[2022-07-31 12:00] VITALS: BP 87/61
[2022-07-31] MEDS: MORPHINE 2 MG SYG IVP PRN ×2 (17:59→23:25)
[2022-07-31 20:46] VITALS: BP 84/45
[2022-08-01 12:00] VITALS: BP 93/60
[2022-08-01] MEDS: MORPHINE 2 MG SYG IVP PRN (18:21)
[2022-08-01 19:00] VITALS: BP 85/51
[2022-08-02 09:00] VITALS: BP 97/67
[2022-08-02] MEDS: MORPHINE 2 MG SYG IVP PRN (18:24)
[2022-08-02 19:00] VITALS: BP 83/42
[2022-08-03] MEDS: MORPHINE 2 MG SYG IVP PRN ×3 (05:00→21:09)
[2022-08-03 08:00] VITALS: BP 84/50
== END 2022-08-03 21:49 | DRG 432 ==
LOC: EDH 09:06 → EDHIP 09:07 → 3CH 16:16
PROVIDERS: ADMIT Hospitalist; ATTEND Hospitalist
PROC: 0W9G3ZZ Drainage of Peritoneal Cavity, Percutaneous Approach (ICD-10-PCS; 2022-07-21)
PROC: 0W9G3ZZ Drainage of Peritoneal Cavity, Percutaneous Approach (ICD-10-PCS; principal; 2022-07-26)
DX: K70.31 Alcoholic cirrhosis of liver with ascites (principal); E43 Unspecified severe protein-calorie malnutrition; U07.1 COVID-19; K76.7 Hepatorenal syndrome; N17.9 Acute kidney failure, unspecified; Z68.1 Body mass index [BMI] 19.9 or less, adult; K86.1 Other chronic pancreatitis; Z66 Do not resuscitate; K76.82 Hepatic encephalopathy; N18.30 Chronic kidney disease, stage 3 unspecified; I46.9 Cardiac arrest, cause unspecified; Z51.5 Encounter for palliative care; Z78.9 Other specified health status; Z82.49 Family history of ischemic heart disease and other diseases of the circulatory system; Z83.3 Family history of diabetes mellitus
CPT/HCPCS: 36415; 49083; 71045; 76705; 80048; 80053; 82042; 82140; 83605; 83690; 83735; 84100; 84132; 84157; 85025; 85027; 85610; 85730; 87071; 87205; 87635; 89051; 97039; C1729; G0378; J0696; J1644; J2060; J2354; J3490; P9046; Q0163